=== PATIENT | female | born 1940 | race Caucasian/White ===

== ENCOUNTER 2019-10-26 21:59 | Inpatient (IN) | payer MEDICARE, OTHER ==
[2019-10-26] MEDS ORDERED: fentaNYL (PF) 50 MCG/ML 2 ML AMP IVP PRN (22:55)
[2019-10-26] MEDS ORDERED: fentaNYL (PF) 50 MCG/ML 2 ML AMP IVP ONE (22:57)
--- NOTE | 2019-10-26 23:00 | ED ---
Fall HPI - General Chief Complaint: Fall Stated Complaint: hip pain Time Seen by Provider: 10/26/19 22:00 Source: patient, EMS Mode of arrival: EMS - History of Present Illness Initial Comments: This is a 79-year-old female who states she fell. She should wheelchair she follows her left hip and complains of severe left hip pain she denies any other injuries any head neck or back pain she states she always has pain or lower extremities with that she does not believe there is anything new going on there. She was brought in by EMS given 25 g of fentanyl with some relief she still having a lot of pain however. No other complaints or modifying factors at this time she is reported with hit her head but she states she is frustrated he denies any head pain some reported nausea. Temperature 99.3 upon arrival. She does have a history of pulmonary fibrosis posterior rheumatoid arthritis COPD. MD Complaint: fall - Related Data Home Medications Medication Instructions Recorded Confirmed Cholecalciferol [Vitamin D3 (25 1,000 unit PO AC-SUPPER 10/12/14 07/04/15 Mcg = 1000 Iu)] Ipratropium-Albuterol Nebulize 3 ml INHALATION RT-Q8H PRN 10/12/14 07/04/15 [Duoneb 0.5 mg-3 mg/3 ml Soln] Montelukast [Singulair] 10 mg PO HS 10/12/14 07/04/15 Ferrous Sulfate [Feosol] 325 mg PO AC-SUPPER 01/23/15 07/04/15 Furosemide [Lasix] 10 mg PO QAM 06/07/15 07/04/15 Lisinopril [Zestril] 1.25 mg PO QAM 06/07/15 07/04/15 Atorvastatin [Lipitor] 40 mg PO AC-SUPPER 07/04/15 07/04/15 Clopidogrel [Plavix] 75 mg PO QAM 07/04/15 07/04/15 Spironolactone [Aldactone] 25 mg PO QAM 07/04/15 07/04/15 Previous Rx's Medication Instructions Recorded Nitroglycerin Sl Tabs [Nitrostat] 0.4 mg SUBLINGUAL Q5M PRN #0 tab 11/02/14 Pantoprazole [Protonix] 40 mg PO AC-BRKFST tablet. 01/04/16 ALPRAZolam [Xanax] 0.25 mg PO HS #30 tablet 07/10/15 Arformoterol Tartrate [Brovana] 15 mcg INHALATION RT-BID nebu 07/10/15 Artificial Tears-Hypromellose 1 drops BOTH EYES QID PRN #0 bottle 07/10/15 [Artificial Tear Drops] Aspirin EC [Ecotrin Low Dose] 81 mg PO DAILY #60 tablet.dr 07/10/15 HYDROcodone/APAP 5-325MG [[place] 1 tab PO Q4HR PRN #60 tab 07/10/15 5-325] Megestrol [Megace] 400 mg PO QAM cup 07/10/15 Metoprolol Tartrate [Lopressor] 12.5 mg PO BID tab 07/10/15 Morphine Sulfate [Ms Contin] 15 mg PO DAILY #30 tablet.er 07/10/15 Polyethylene Glycol 3350 [Miralax] 17 gm PO HS powd.pack 07/10/15 Sennosides-Docusate Sodium 2 each PO BID PRN tab 07/10/15 [Senokot-S] Benzonatate [Tessalon Perles] 200 mg PO TID #90 cap 07/15/15 Budesonide [Pulmicort] 1 mg INHALATION RT-BID nebu 07/15/15 Levalbuterol Nebulized [Xopenex 1.25 mg INHALATION RT-QID ml 07/15/15 Nebulized] Levofloxacin [Levaquin] 250 mg PO DAILY #5 tab 07/15/15 predniSONE 5 mg PO HS #0 07/15/15 predniSONE 10 mg PO DIRECTED #90 tab 07/15/15 Allergies Allergy/AdvReac Type Severity Reaction Status Date / Time codeine Allergy Severe Anaphylaxis Verified 10/26/19 22:13 Echinacea Allergy Severe Anaphylaxis Verified 10/26/19 22:13 Sulfa (Sulfonamide Allergy Severe Anaphylaxis Verified 10/26/19 22:13 Antibiotics) alcohol AdvReac Unknown Unknown Verified 10/26/19 22:13 nitroglycerin AdvReac Unknown Unknown Verified 10/26/19 22:13 [From Nitrostat] Review of Systems ROS Statement: Those systems with pertinent positive or pertinent negative responses have been documented in the HPI. ROS Other: All systems not noted in ROS Statement are negative. 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, chronic diverticulosis fe deficiency anemia , COPD, hyperlipidemia, rheumatoid arthritis, Last Myocardial Infarction Date:: 10/13/2014 History of Any Multi-Drug Resistant Organisms: None Reported Past Surgical History: Appendectomy, Bowel Resection, Cholecystectomy, Heart Catheterization, Heart Catheterization With Stent Additional Past Surgical History / Comment(s): bowel sx (adhesions), right foot, LEFT SHOULDER FX Past Anesthesia/Blood Transfusion Reactions: No Reported Reaction Date of Last Stent Placement:: 10/13/2014 Past Psychological History: Anxiety, Depression Smoking Status: Never smoker Past Alcohol Use History: None Reported Past Drug Use History: None Reported - Past Family History Father Family Medical History: Coronary Artery Disease (CAD) Additional Family Medical History / Comment(s): parkinsons, cabg x 4 vessels Mother Additional Family Medical History / Comment(s): at 54 from a coronary thrombosis General Exam - General Exam Comments Initial Comments: This is a well-developed well-nourished awake alert oriented 3 female who does demonstrate a [place] Coma Scale of 15 Limitations: physical limitation General appearance: alert, anxious, in distress Head exam: Present: atraumatic, normocephalic, normal inspection Eye exam: Present: normal appearance, PERRL, EOMI. Absent: scleral icterus, conjunctival injection, periorbital swelling ENT exam: Present: normal exam, mucous membranes moist Neck exam: Present: normal inspection. Absent: tenderness, meningismus, lymphadenopathy Respiratory exam: Present: normal lung sounds bilaterally. Absent: respiratory distress, wheezes, rales, rhonchi, stridor Cardiovascular Exam: Present: regular rate, normal rhythm, normal heart sounds. Absent: systolic murmur, diastolic murmur, rubs, gallop, clicks GI/Abdominal exam: Present: soft, normal bowel sounds. Absent: distended, tenderness, guarding, rebound, rigid Rectal exam: Present: deferred Extremities exam: Present: tenderness ([place] palpation over left hip no definite step-off or crepitation however. Some possible lateral rotation no definite shortening.), normal capillary refill. Absent: full ROM, pedal edema, joint swelling, calf tenderness Back exam: Present: normal inspection. Absent: tenderness, CVA tenderness (R), CVA tenderness (L), rash noted Neurological exam: Present: alert, oriented X3, CN II-XII intact Psychiatric exam: Present: normal affect, anxious Skin exam: Present: warm, dry, intact, normal color, other (Small bruise noted on the left thurston no evidence of any infectious process at this time). Absent: rash Course Vital Signs 10/26/19 10/26/19 22:07 23:09 Temperature 99.0 F Pulse Rate 72 78 Respiratory 18 18 Rate Blood Pressure 140/76 133/65 O2 Sat by Pulse 99 96 Oximetry Medical Decision Making - Medical Decision Making I did discuss the case with Colin murillo from Dr. Weiss's office. Patient be admitted with medical and pulmonary consultation. - Lab Data Result diagrams: 10/26/19 23:25 Lab Results 10/26/19 Range/Units 23:25 WBC 11.6 H (3.8-10.6) k/uL RBC 4.26 (3.80-5.40) m/uL Hgb 12.5 (11.4-16.0) gm/dL Hct 39.3 (34.0-46.0) % MCV 92.3 (80.0-100.0) fL MCH 29.3 (25.0-35.0) pg MCHC 31.7 (31.0-37.0) g/dL RDW 14.4 (11.5-15.5) % Plt Count 271 (150-450) k/uL Neutrophils % 85 % Lymphocytes % 7 % Monocytes % 5 % Eosinophils % 1 % Basophils % 0 % Neutrophils # 9.9 H (1.3-7.7) k/uL Lymphocytes # 0.8 L (1.0-4.8) k/uL Monocytes # 0.6 (0-1.0) k/uL Eosinophils # 0.2 (0-0.7) k/uL Basophils # 0.0 (0-0.2) k/uL Hypochromasia Slight - Radiology Data Radiology results: report reviewed (I did review the imaging and report evidence of a subcapital fracture on the left.), image reviewed Disposition Clinical Impression: Closed left hip fracture, Fall Disposition: ADMITTED IP TO THIS [facility] Condition: Fair Referrals: Micha Salas DO [Primary Care Provider] - 1-2 days
--- NOTE | 2019-10-26 23:31 | XR ---
EXAMINATION TYPE: XR Hip LT and AP Pelvis DATE OF EXAM: 10/26/2019 COMPARISON: NONE HISTORY: Hip pain. Fall. TECHNIQUE: 3 views FINDINGS: There is 3 cm impacted subcapital fracture left femur. There is no dislocation. The pelvic ring is intact. Sacroiliac joints are intact. IMPRESSION: Acute impacted subcapital fracture left femur.
[2019-10-26 23:35] LABS: Basophils % (A) 0 %; Eosinophils # (A) 0.2 k/uL (0-0.7); Eosinophils % (A) 1 %; HCT 39.3 % (34.0-46.0); HGB 12.5 gm/dL (11.4-16.0); Hypochromasia Slight; Lymphocytes # (A) 0.8 k/uL (1.0-4.8); Lymphocytes % (A) 7 %; MCH 29.3 pg (25.0-35.0); MCHC 31.7 g/dL (31.0-37.0); MCV 92.3 fL (80.0-100.0); Monocytes # (A) 0.6 k/uL (0-1.0); Monocytes % (A) 5 %; Neutrophils # (A) 9.9 k/uL (1.3-7.7); Neutrophils % (A) 85 %; Platelet Count 271 k/uL (150-450); RBC 4.26 m/uL (3.80-5.40); RDW 14.4 % (11.5-15.5); WBC 11.6 k/uL (3.8-10.6)
[2019-10-26] MEDS ORDERED: SODIUM CHLORIDE 0.9% 1,000 ML IV SCH (23:45)
[2019-10-26] MEDS ORDERED: HYDROmorphone 0.5 MG/0.5 ML SYRINGE IVP STA (23:48)
[2019-10-26] MEDS ORDERED: LORazepam 2 MG/ML INJ IV PRN (23:49)
[2019-10-26] MEDS ORDERED: ACETAMINOPHEN TAB 325 MG TAB PO PRN (23:49)
[2019-10-26] MEDS ORDERED: ONDANSETRON 4 MG/2 ML VIAL IVP PRN (23:49)
[2019-10-26] MEDS ORDERED: HYDROmorphone 0.5 MG/0.5 ML SYRINGE IVP PRN (23:49)
[2019-10-26] MEDS ORDERED: NALOXONE 0.4 MG/ML 1 ML VIAL IV PRN (23:49)
--- NOTE | 2019-10-26 23:52 | XR ---
EXAMINATION TYPE: XR chest 1V portable DATE OF EXAM: 10/26/2019 COMPARISON: 07/05/2018 HISTORY: Chest pain. Fall. TECHNIQUE: FINDINGS: Heart is normal. Lungs are clear of consolidation. There is no heart failure. There is mild linear density left lung base. There is no pleural effusion. Thoracic aorta is atheromatous. IMPRESSION: Minimal scarring or subsegmental atelectasis left lung base. Normal heart.
[2019-10-26 23:53] LABS: Albumin 3.6 g/dL (3.5-5.0); Calcium 9.4 mg/dL (8.4-10.2); Total Bilirubin 0.5 mg/dL (0.2-1.3); Total Protein 6.4 g/dL (6.3-8.2)
[2019-10-26] MEDS ORDERED: NITROGLYCERIN SL TABS 0.4 MG TAB SUBLINGUAL PRN (23:53)
[2019-10-26 23:55] LABS: INR 0.9 (<1.2); Prothrombin Time 9.4 sec (9.0-12.0)
[2019-10-27 00:02] LABS: Magnesium 1.8 mg/dL (1.6-2.3)
[2019-10-27 00:31] LABS: Partial Thromboplastin Time 21.2 sec (22.0-30.0)
[2019-10-27 01:07] LABS: Appearance,Urine Clear (Clear); Bilirubin,Urine Negative (Negative); Blood,Urine Negative (Negative); Color,Urine Yellow; Glucose,Urine (UA) Negative (Negative); Hyaline Casts,Urine 1 /lpf (0-2); Ketones,Urine Negative (Negative); Leukocyte Esterase,Urine Small (Negative); Mucus,Urine Rare /hpf; Nitrite,Urine Negative (Negative); PH, Urine 5.5 (5.0-8.0); Protein,Urine Negative (Negative); RBC,Urine 3 /hpf (0-5); Specific Gravity,Urine 1.014 (1.001-1.035); Urobilinogen,Urine <2.0 mg/dL (<2.0); WBC,Urine <1 /hpf (0-5)
[2019-10-27] MEDS ORDERED: ONDANSETRON 4 MG/2 ML VIAL IVP PRN (05:43)
[2019-10-27] MEDS: HYDROmorphone 1 MG/ML 1 ML SYRINGE IVP PRN ×4 (05:45→22:48)
[2019-10-27] MEDS: LORazepam 2 MG/ML INJ IV PRN ×2 (07:43→21:17)
[2019-10-27] MEDS ORDERED: ALBUTEROL NEBULIZED 2.5 MG/3 ML INHALATION SCH (08:00)
[2019-10-27] MEDS: BUDESONIDE 1 MG/2 ML NEBU INHALATION SCH ×2 (08:24→19:44)
[2019-10-27] MEDS: FORMOTEROL FUMARATE 20 MCG/2 ML NEBU INHALATION SCH ×2 (08:24→19:44)
[2019-10-27] MEDS: ALBUTEROL NEBULIZED 2.5 MG/3 ML INHALATION SCH ×4 (08:26→19:44)
[2019-10-27] MEDS ORDERED: ARTIFICIAL TEARS-HYPROMELLOSE DROPS 15 ML BTL BOTH EYES PRN (09:00)
[2019-10-27] MEDS ORDERED: PANTOPRAZOLE 40 MG/10 ML VIAL IV SCH (09:00)
[2019-10-27] MEDS: HEPARIN SODIUM,PORCINE 5,000 UNIT/ML 1 ML VIAL SQ SCH ×2 (09:32→21:16)
[2019-10-27] MEDS: FUROSEMIDE 20 MG TAB PO SCH (09:32)
[2019-10-27] MEDS: LISINOPRIL 2.5 MG TAB PO SCH (09:32)
[2019-10-27] MEDS: METOPROLOL TARTRATE 12.5 MG TAB PO SCH ×2 (09:33→21:15)
[2019-10-27] MEDS: HYDROCORTISONE SUCCINATE 100 MG/2 ML VIAL IV SCH ×3 (10:03→22:48)
[2019-10-27] MEDS ORDERED: SENNOSIDES-DOCUSATE SODIUM 1 EACH TAB PO PRN (10:23)
[2019-10-27] MEDS: PANTOPRAZOLE 40 MG TABLET PO SCH (11:14)
[2019-10-27] MEDS: SPIRONOLACTONE 25 MG TAB PO SCH (11:14)
[2019-10-27] MEDS: MORPHINE SULFATE ER 15 MG TABLET PO SCH (11:14)
--- NOTE | 2019-10-27 11:36 | P.HPOR ---
History of Present Illness H&P Date: 10/27/19 Chief Complaint: Left hip pain The patient's a 79[place]year-old [facility] resident who presents with severe left hip pain after a suspected fall yesterday. She is a poor historian however it is unclear she ambulates independently. 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, chronic diverticulosis fe deficiency anemia , COPD, hyperlipidemia, rheumatoid arthritis, Last Myocardial Infarction Date:: 10/13/2014 History of Any Multi-Drug Resistant Organisms: None Reported Past Surgical History: Appendectomy, Bowel Resection, Cholecystectomy, Heart Catheterization, Heart Catheterization With Stent Additional Past Surgical History / Comment(s): bowel sx (adhesions), right foot, LEFT SHOULDER FX Past Anesthesia/Blood Transfusion Reactions: No Reported Reaction Date of Last Stent Placement:: 10/13/2014 Past Psychological History: Anxiety, Depression Additional Psychological History / Comment(s): pt. states she gets depressed at times but would never harm herself Smoking Status: Never smoker Past Alcohol Use History: None Reported Past Drug Use History: None Reported - Past Family History Father Family Medical History: Coronary Artery Disease (CAD) Additional Family Medical History / Comment(s): parkinsons, cabg x 4 vessels Mother Additional Family Medical History / Comment(s): at 54 from a coronary thrombosis Medications and Allergies Home Medications Medication Instructions Recorded Confirmed Type Cholecalciferol [Vitamin D3 (25 1,000 unit PO AC-SUPPER 10/12/14 07/04/15 History Mcg = 1000 Iu)] Ipratropium-Albuterol Nebulize 3 ml INHALATION RT-Q8H PRN 10/12/14 07/04/15 History [Duoneb 0.5 mg-3 mg/3 ml Soln] Montelukast [Singulair] 10 mg PO HS 10/12/14 07/04/15 History Nitroglycerin Sl Tabs [Nitrostat] 0.4 mg SUBLINGUAL Q5M PRN #0 tab 11/02/14 07/04/15 Rx Ferrous Sulfate [Feosol] 325 mg PO AC-SUPPER 01/23/15 07/04/15 History Furosemide [Lasix] 10 mg PO QAM 06/07/15 07/04/15 History Lisinopril [Zestril] 1.25 mg PO QAM 06/07/15 07/04/15 History Pantoprazole [Protonix] 40 mg PO AC-BRKFST tablet. 06/16/15 07/04/15 Rx Atorvastatin [Lipitor] 40 mg PO AC-SUPPER 07/04/15 07/04/15 History Clopidogrel [Plavix] 75 mg PO QAM 07/04/15 07/04/15 History Spironolactone [Aldactone] 25 mg PO QAM 07/04/15 07/04/15 History ALPRAZolam [Xanax] 0.25 mg PO HS #30 tablet 07/10/15 Rx Arformoterol Tartrate [Brovana] 15 mcg INHALATION RT-BID nebu 07/10/15 Rx Artificial Tears-Hypromellose 1 drops BOTH EYES QID PRN #0 bottle 07/10/15 Rx [Artificial Tear Drops] Aspirin EC [Ecotrin Low Dose] 81 mg PO DAILY #60 tablet. 07/10/15 Rx HYDROcodone/APAP 5-325MG [[place] 1 tab PO Q4HR PRN #60 tab 07/10/15 Rx 5-325] Megestrol [Megace] 400 mg PO QAM cup 07/10/15 Rx Metoprolol Tartrate [Lopressor] 12.5 mg PO BID tab 07/10/15 Rx Morphine Sulfate [Ms Contin] 15 mg PO DAILY #30 tablet.er 07/10/15 Rx Polyethylene Glycol 3350 [Miralax] 17 gm PO HS powd.pack 07/10/15 Rx Sennosides-Docusate Sodium 2 each PO BID PRN tab 07/10/15 Rx [Senokot-S] Benzonatate [Tessalon Perles] 200 mg PO TID #90 cap 07/15/15 Rx Budesonide [Pulmicort] 1 mg INHALATION RT-BID nebu 07/15/15 Rx Levalbuterol Nebulized [Xopenex 1.25 mg INHALATION RT-QID ml 07/15/15 Rx Nebulized] Levofloxacin [Levaquin] 250 mg PO DAILY #5 tab 07/15/15 Rx predniSONE 5 mg PO HS #0 07/15/15 07/04/15 Rx predniSONE 10 mg PO DIRECTED #90 tab 07/15/15 Rx Allergies Allergy/AdvReac Type Severity Reaction Status Date / Time codeine Allergy Severe Anaphylaxis Verified 10/26/19 22:13 Echinacea Allergy Severe Anaphylaxis Verified 10/26/19 22:13 Sulfa (Sulfonamide Allergy Severe Anaphylaxis Verified 10/26/19 22:13 Antibiotics) alcohol AdvReac Unknown Unknown Verified 10/26/19 22:13 nitroglycerin AdvReac Unknown Unknown Verified 10/26/19 22:13 [From Nitrostat] Physical Examination - Fracture left hip Location of fracture: Left hip Appearance: other (Shortening and external rotation left lower extremity) Compartments: soft Distal extremity neurovascularly intact: Yes Distal joint involvement: No Results Nontender bilateral upper extremities, skin tear posterior lateral left proximal forearm Nontender cervicothoracic lumbar spine with no step off Pelvis stable to external rotation stress Shortening and external rotation left lower extremity with extreme pain with log roll left hip No pain with log roll right hip Nontender both knees Anterior medial distal left thurston tenderness with ecchymosis and swelling Distal neurovascular exam intact in the lower extremities - Labs Labs: Abnormal Lab Results - Last 24 Hours (Table) 10/26/19 10/26/19 10/26/19 Range/Units 23:25 23:25 23:25 WBC 11.6 H (3.8-10.6) k/uL Neutrophils # 9.9 H (1.3-7.7) k/uL Lymphocytes # 0.8 L (1.0-4.8) k/uL APTT 21.2 L (22.0-30.0) sec Sodium 136 L (137-145) mmol/L BUN 33 H (7-17) mg/dL Creatinine 1.26 H (0.52-1.04) mg/dL Glucose 170 H (74-99) mg/dL Ur Leukocyte Esterase (Negative) Urine Mucus (None) /hpf 10/27/19 Range/Units 00:25 WBC (3.8-10.6) k/uL Neutrophils # (1.3-7.7) k/uL Lymphocytes # (1.0-4.8) k/uL APTT (22.0-30.0) sec Sodium (137-145) mmol/L BUN (7-17) mg/dL Creatinine (0.52-1.04) mg/dL Glucose (74-99) mg/dL Ur Leukocyte Esterase Small H (Negative) Urine Mucus Rare H (None) /hpf H & H 10/26/19 Range/Units 23:25 Hgb 12.5 (11.4-16.0) gm/dL Hct 39.3 (34.0-46.0) % Coagulation 10/26/19 Range/Units 23:25 INR 0.9 (<1.2) Result Diagrams: 10/26/19 23:25 10/26/19 23:25 - Diagnostic results Hip x-ray: image reviewed (Displaced left subcapital femoral neck fracture) Assessment and Plan Assessment: Displaced left subcapital femoral neck fracture History of coronary artery disease on Plavix COPD Dementia Multiple medical comorbidities Plan: At this point I recommend proceeding with surgical intervention. We will plan to proceed with left hip hemiarthroplasty once medically stable. We will have the power of set up inspector called for consent. We will likely need to proceed with general anesthetic as she's been on Plavix. I will obtain x-rays of the left tibia/fibula as she does have some soft tissue trauma. Time with Patient: Greater than 30
--- NOTE | 2019-10-27 12:09 | P.CNPUL ---
History of Present Illness Consult date: 10/27/19 Reason for consult: COPD History of present illness: 79-year-old female patient with advanced COPD with chronic hypoxic respiratory failure and based on FEV1 of 41% of predicted and chronic steroid use at a dose of 5 mg of prednisone daily basis. She also has history of rheumatoid arthritis maintained on 5 mg of prednisone, coronary artery disease, COPD and hypertension. Previous cardiac catheterization and stenting of the RCA and LAD has been done on this patient. The patient came into the hospital after she had a fall at the halfway. She fell out of her wheelchair and she sustained a fracture to her left hip. She came into the emergency department having difficulties with pain and mobility. The x-ray of the left hip showed an acute subcapital fracture of the left femur. Coagulation profile is within normal. Renal function shows a BUN of 33 with a creatinine of 1.26. This patient has normal liver function tests and the rest of the blood work is within normal. She is a permanent halfway resident. She is residing at [facility]. The patient has limited exercise capacity she gets short of breath with minimal marge unt of activity due to her advanced COPD. She has been on Advair as maintenance and she does albuterol ipratropium nebulized treatment on an as needed basis. She has difficulty with mobility and gait. No joint deformities other than her chronic deformities related to rheumatoid arthritis. She has not had any previous falls. The patient has no cough and congestion has been much subsided. No swelling lower extremities. No fever or chills. No thrush. She is edentulous. No aspiration. She is unable to perform activities of daily today life independently and she needs help. Her last pneumonia shot was around 3 years ago. Good appetite. No altered mentation. Review of Systems Constitutional Constitutional: (generalized weakness) Eyes Eyes: vision change (cataracts in both eyes) ENMT Ears: no difficulty hearing, no ear pain Nose: no frequent nosebleeds, no nose problems, no sinus problems Mouth/Throat: no sore throat, no bleeding gums, no snoring, no dry mouth, no mouth ulcers, no oral abnormalities, no teeth problems ( is edentulous.) Cardiovascular Cardiovascular: shortness of breath when walking (Patient has limited exercise capacity and she cannot move alone without any assistance. She moves around with the help of a wheelchair, cannot use a walker because of her severe arthritis.) Respiratory Respiratory: no cough, no wheezing, no coughing up blood, no sleep apnea, shortness of breath Gastrointestinal Gastrointestinal: no abdominal pain, no nausea, no vomiting, no constipation, normal appetite, no diarrhea, not vomiting blood, no dyspepsia, no GERD Genitourinary Genitourinary: no incontinence, no difficulty urinating, no hematuria, no increased frequency Musculoskeletal Musculoskeletal: arthralgias/joint pain, back pain (Right knee pain) and the patient is a left hip pain as the patient a fall and fractured left hip. Integumentary Skin: no abnormal mole, no jaundice, no rashes, no laceration Neurologic Neurologic: no loss of consciousness, no weakness, no numbness, no seizures, no dizziness, no migraines, no headaches, no tremor Psychiatric Psych: no depression, no sleep disturbances, feeling safe in a relationship, no alcohol abuse, no anxiety, no hallucinations, no suicidal thoughts Endocrine Endocrine: no fatigue Hematologic/Lymphatic Hematologic/Lymphatic no swollen glands, no bruising, no excessive bleeding Allergic/Immunologic Allergy/Immunologic: no runny nose, no sinus pressure, no itching, no hives, no frequent sneezing Screening Constitutional: Reports weakness 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, chronic diverticulosis fe deficiency anemia , COPD, hyperlipidemia, rheumatoid arthritis, Last Myocardial Infarction Date:: 10/13/2014 History of Any Multi-Drug Resistant Organisms: None Reported Past Surgical History: Appendectomy, Bowel Resection, Cholecystectomy, Heart Catheterization, Heart Catheterization With Stent Additional Past Surgical History / Comment(s): bowel sx (adhesions), right foot, LEFT SHOULDER FX Past Anesthesia/Blood Transfusion Reactions: No Reported Reaction Date of Last Stent Placement:: 10/13/2014 Past Psychological History: Anxiety, Depression Additional Psychological History / Comment(s): pt. states she gets depressed at times but would never harm herself Smoking Status: Never smoker Past Alcohol Use History: None Reported Past Drug Use History: None Reported - Past Family History Father Family Medical History: Coronary Artery Disease (CAD) Additional Family Medical History / Comment(s): parkinsons, cabg x 4 vessels Mother Additional Family Medical History / Comment(s): at 54 from a coronary thrombosis Medications and Allergies Home Medications Medication Instructions Recorded Confirmed Type Cholecalciferol [Vitamin D3 (25 1,000 unit PO AC-SUPPER 10/12/14 07/04/15 History Mcg = 1000 Iu)] Ipratropium-Albuterol Nebulize 3 ml INHALATION RT-Q8H PRN 10/12/14 07/04/15 History [Duoneb 0.5 mg-3 mg/3 ml Soln] Montelukast [Singulair] 10 mg PO HS 10/12/14 07/04/15 History Nitroglycerin Sl Tabs [Nitrostat] 0.4 mg SUBLINGUAL Q5M PRN #0 tab 11/02/14 07/04/15 Rx Ferrous Sulfate [Feosol] 325 mg PO AC-SUPPER 01/23/15 07/04/15 History Furosemide [Lasix] 10 mg PO QAM 06/07/15 07/04/15 History Lisinopril [Zestril] 1.25 mg PO QAM 06/07/15 07/04/15 History Pantoprazole [Protonix] 40 mg PO AC-BRKFST tablet. 06/16/15 07/04/15 Rx Atorvastatin [Lipitor] 40 mg PO AC-SUPPER 07/04/15 07/04/15 History Clopidogrel [Plavix] 75 mg PO QAM 07/04/15 07/04/15 History Spironolactone [Aldactone] 25 mg PO QAM 07/04/15 07/04/15 History ALPRAZolam [Xanax] 0.25 mg PO HS #30 tablet 07/10/15 Rx Arformoterol Tartrate [Brovana] 15 mcg INHALATION RT-BID nebu 07/10/15 Rx Artificial Tears-Hypromellose 1 drops BOTH EYES QID PRN #0 bottle 07/10/15 Rx [Artificial Tear Drops] Aspirin EC [Ecotrin Low Dose] 81 mg PO DAILY #60 tablet. 07/10/15 Rx HYDROcodone/APAP 5-325MG [[place] 1 tab PO Q4HR PRN #60 tab 07/10/15 Rx 5-325] Megestrol [Megace] 400 mg PO QAM cup 07/10/15 Rx Metoprolol Tartrate [Lopressor] 12.5 mg PO BID tab 07/10/15 Rx Morphine Sulfate [Ms Contin] 15 mg PO DAILY #30 tablet.er 07/10/15 Rx Polyethylene Glycol 3350 [Miralax] 17 gm PO HS powd.pack 07/10/15 Rx Sennosides-Docusate Sodium 2 each PO BID PRN tab 07/10/15 Rx [Senokot-S] Benzonatate [Tessalon Perles] 200 mg PO TID #90 cap 07/15/15 Rx Budesonide [Pulmicort] 1 mg INHALATION RT-BID nebu 07/15/15 Rx Levalbuterol Nebulized [Xopenex 1.25 mg INHALATION RT-QID ml 07/15/15 Rx Nebulized] Levofloxacin [Levaquin] 250 mg PO DAILY #5 tab 07/15/15 Rx predniSONE 5 mg PO HS #0 07/15/15 07/04/15 Rx predniSONE 10 mg PO DIRECTED #90 tab 07/15/15 Rx Allergies Allergy/AdvReac Type Severity Reaction Status Date / Time codeine Allergy Severe Anaphylaxis Verified 10/26/19 22:13 Echinacea Allergy Severe Anaphylaxis Verified 10/26/19 22:13 Sulfa (Sulfonamide Allergy Severe Anaphylaxis Verified 10/26/19 22:13 Antibiotics) alcohol AdvReac Unknown Unknown Verified 10/26/19 22:13 nitroglycerin AdvReac Unknown Unknown Verified 10/26/19 22:13 [From Nitrostat] Physical Exam Vitals: Vital Signs Temp Pulse Pulse Resp BP BP Pulse Ox 10/27/19 11:25 99.5 F 83 20 151/66 98 10/27/19 08:50 110 H 10/27/19 08:43 108 H 10/27/19 08:42 108 H 10/27/19 08:29 112 H 10/27/19 07:45 99.5 F 104 H 20 146/102 92 L 10/27/19 03:16 98.0 F 97 19 168/92 92 L 10/27/19 01:33 97.9 F 85 20 157/100 95 10/27/19 00:29 98.9 F 77 16 136/94 95 10/26/19 23:09 78 18 133/65 96 10/26/19 22:07 99.0 F 72 18 140/76 99 Intake and Output 10/26/19 10/27/19 10/27/19 22:59 06:59 14:59 Output Total 750 Balance -750 Output: Urine 750 Uretheral (Ibarra) 400 Other: Voiding Method Indwelling Catheter Indwelling Catheter # Voids 0 Weight 82.1 kg 83 kg General Appearance no diaphoresis, no respiratory distress, speech not interrupted by breaths, no dyspnea, no pallor, not cachectic, well nourished, appears well HEENT no pursed lip breathing, no jugular venous distention, no mucous membrane cyanosis, no perioral cyanosis, mallampati classification: class 1, Mallampati Classification: Class 3 (edentulous) Chest no barrel chest, no retractions, no sternocleidomastoid muscle contractions, no supraclavicular retractions, no intercostal retractions, no prolonged expiratory wheezing, no decreased air movement, no rhonchi, no hyperinflation, decreased air movement (crackles in the lung bases more so on the left and thoracolumbar kyphoscoliosis.) Heart no right ventricular heave, no distant heart sounds, no s3 gallop GI bowel sounds: hyperactive (borborygmi), bowel sounds: diminished or absent Extremities no cyanosis, no clubbing, no edema, the patient has left lower extremity is externally rotated and she is neurovascularly intact. Neurologic no decreased mental status, no somnolence, no confusion Assisstive Devices: wheelchair manual Skin General Appearance normal, (normal) normal except as noted Results - Laboratory Findings CBC and BMP: 10/26/19 23:25 10/26/19 23:25 PT/INR, D-dimer PT 9.4 sec (9.0-12.0) 10/26/19 23:25 INR 0.9 (<1.2) 10/26/19 23:25 Abnormal lab findings: Abnormal Labs 10/26/19 10/26/19 10/26/19 23:25 23:25 23:25 WBC 11.6 H Neutrophils # 9.9 H Lymphocytes # 0.8 L APTT 21.2 L Sodium 136 L BUN 33 H Creatinine 1.26 H Glucose 170 H Ur Leukocyte Esterase Urine Mucus 10/27/19 00:25 WBC Neutrophils # Lymphocytes # APTT Sodium BUN Creatinine Glucose Ur Leukocyte Esterase Small H Urine Mucus Rare H - Diagnostic Findings Chest x-ray: image reviewed Assessment and Plan Plan: 1 left hip subcapital fracture of the femur, fall related 2 left hip pain secondary to above 3 severe chronic obstructive pulmonary disease, she has severe COPD. Her FEV1 is noted of 41% of predicted.tinea the Advair. Continue the albuterol nebulized treatments every times a day. She is on prednisone 5 mg by mouth on a daily basis. Her lungs are diminished yet no signs of any pneumonia or fluid at this point in time.the patient is been stable for now and there are no active respiratory issues. She was still moving around with the help of a chair. Nevertheless, despite her limitations, she is doing well and she had an acceptable quality of life till at this point in time when she fell 4 coronary arteriosclerosis, inactive in stable and previous stenting of RCA and LAD 5 rheumatoid arthritis, on low-dose prednisone at 5 mg. No active joint swelling. 6 osteoarthritis Difficulty and mobility and the patient is moving around with the help of a wheelchair. patient is still on a combination of morphine and [place] for pain control. 7 hyperlipidemia, on Lipitor for hyperlipidemia. 8 anxiety disorder 9 scoliosis of thoracic spine 10 dementia Plan Provide adequate rate control Incentive spirometer This dose hydrocortisone. The oral prednisone for now Proceed with surgery once ready by orthopedic surgery for left hip hemiarthroplasty CODE STATUS needs to be established prior to that
[2019-10-27 12:22] LABS: Glucose,Whole Blood 141 mg/dL (75-99)
--- NOTE | 2019-10-27 13:17 | XR ---
EXAMINATION TYPE: XR tibia fibula LT , 4 VIEWS DATE OF EXAM ORDERED: 10/27/2019 HISTORY: trauma. COMPARISON: None. FINDINGS: The bones are quite osteopenic. There is extensive vascular calcification present. There is evidence of osteoarthritis within the lef t knee. There are plantar and Achilles calcaneal spurs. No fracture, dislocation or other acute osseo us lesion is seen. IMPRESSION: 1. NO ACUTE OSSEOUS LESION. 2. OSTEOARTHRITIS. 3. CALCANEAL SPURS.
[2019-10-27] MEDS: HYDROcodone/APAP 5-325MG 1 EACH TAB PO PRN ×3 (13:35→21:16)
[2019-10-27] MEDS: MEGESTROL 400 MG/10 ML CUP PO SCH (13:47)
[2019-10-27 17:18] LABS: Glucose,Whole Blood 170 mg/dL (75-99)
--- NOTE | 2019-10-27 17:23 | P.CONS ---
History of Present Illness - Reason for Consult Consult date: 10/27/19 Medical management Requesting physician: Hao Bird - Chief Complaint Left hip pain - History of Present Illness Consultation: This is a 79-year-old patient who follows a Dr. Salas at the [facility]. Chronic stable medical conditions include coronary artery. The stent, COPD, GERD, hypertension, rheumatoid arthritis, chronic hydronephrosis of the left kidney, chronic diverticulosis hyperlipidemia rheumatoid arthritis. Normally uses a wheelchair. Patient fell on the left hip fracturing fracturing the same. Significant pain of the fracture site. No change in the breathing pattern. This was a mechanical fall. No dizziness no lightheadedness. Does not complaint of any chest pain. Patient about the most detailed historian. No fever no chills. Appetite is fair. Review of systems: GEN.: Tired EYES: None HEENT: None NECK: None RESPIRATORY: None CARDIOVASCULAR: None GASTROINTESTINAL: None GENITOURINARY: None MUSCULOSKELETAL: Pain especially in the left hip LYMPHATICS: None HEMATOLOGICAL: None PSYCHIATRY: None NEUROLOGICAL: To baseline uses a wheelchair Past medical history to include: Coronary artery disease with stent, COPD, GERD, hypertension, rheumatoid arthritis, chronic hydronephrotic left kidney, colonic diverticulosis, hyperlipidemia, rheumatoid arthritis, depression Social history: Does not smoke or drink cold. Resident of [facility]. Physical examination: VITAL SIGNS: 99, 72, 18, 140 was on Lasix, 99% on 2 L GENERAL: BMI 31.4, laying in bed uncomfortable. EYES: Pupils equal. Conjunctiva normal. HEENT: External appearance of nose and ears normal, oral cavity grossly normal. NECK: JVD not raised; masses not palpable. HEART: First and second heart sounds are normal; no edema. LUNGS: Respiratory rate normal; clear to auscultation. ABDOMEN: Soft, nontender, liver spleen not palpable, no masses palpable. PSYCH: Tired, cannot be assessed answers occasional questionsl. MUSCULOSKELETAL: Limited range of motion left hip. Evidence of OA in the joints NEUROLOGICAL: Cranial nerves grossly intact; no facial asymmetry, power and sensation grossly intact. LYMPHATICS: No lymph nodes palpable in the axilla and neck INVESTIGATIONS, reviewed in the clinical context: White count 11.6 hemoglobin 12.5 platelets 271 potassium 5 bun 33 creatinine 1.26 Patient's creatinine in June of this year was 1.35 UA positive for leukoesterase, small COVID-19 PCR-not detected Left hip fracture showing acute impacted subcapital fracture of the left femur EKG tracing personally reviewed by me shows normal sinus rhythm Chest x-ray film personally reviewed by me shows-lung castillo to be clear Assessment: -Acute left femur impacted subcapital fracture secondary to mechanical fall -Coronary artery disease with stent -Obesity BMI 31.4 -COPD -GERD -Essential hypertension -Rheumatoid arthritis -Chronically hydronephrotic left kidney -Colonic diverticulosis -Hyperlipidemia -Chronic kidney disease stage III Plan: Cardiovascular risk assessment: Patient has multiple comorbid morbidities including coronary artery with stent. Patient has no active symptoms. Has a limited access tolerate. White cell per surgery is low risk. Patient risk classification is about moderate risk for surgery with medical contraindications. This was discussed with the patient. Home medications resumed. Lovenox for DVT prophylaxis.: Antiplatelet agents to be held off for now. Thank you Dr. 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, chronic diverticulosis fe deficiency anemia , COPD, hyperlipidemia, rheumatoid arthritis, Last Myocardial Infarction Date:: 10/13/2014 History of Any Multi-Drug Resistant Organisms: None Reported Past Surgical History: Appendectomy, Bowel Resection, Cholecystectomy, Heart Catheterization, Heart Catheterization With Stent Additional Past Surgical History / Comment(s): bowel sx (adhesions), right foot, LEFT SHOULDER FX Past Anesthesia/Blood Transfusion Reactions: No Reported Reaction Date of Last Stent Placement:: 10/13/2014 Past Psychological History: Anxiety, Depression Additional Psychological History / Comment(s): pt. states she gets depressed at times but would never harm herself Smoking Status: Never smoker Past Alcohol Use History: None Reported Past Drug Use History: None Reported - Past Family History Father Family Medical History: Coronary Artery Disease (CAD) Additional Family Medical History / Comment(s): parkinsons, cabg x 4 vessels Mother Additional Family Medical History / Comment(s): at 54 from a coronary thrombosis Medications and Allergies Home Medications Medication Instructions Recorded Confirmed Type Cholecalciferol [Vitamin D3 (25 4,000 unit PO DAILY@1700 10/12/14 10/27/19 History Mcg = 1000 Iu)] Montelukast [Singulair] 10 mg PO HS@2100 10/12/14 10/27/19 History Nitroglycerin Sl Tabs [Nitrostat] 0.4 mg SUBLINGUAL Q5M PRN #0 tab 11/02/14 10/27/19 Rx Furosemide [Lasix] 20 mg PO Q48H 06/07/15 10/27/19 History Spironolactone [Aldactone] 12.5 mg PO Q48H 07/04/15 10/27/19 History ALPRAZolam [Xanax] 0.25 mg PO HS #30 tablet 07/10/15 10/27/19 Rx Artificial Tears-Hypromellose 1 drops BOTH EYES QID PRN #0 bottle 07/10/15 10/27/19 Rx [Artificial Tear Drops] Metoprolol Tartrate [Lopressor] 12.5 mg PO BID tab 07/10/15 10/27/19 Rx Morphine Sulfate [Ms Contin] 15 mg PO DAILY #30 tablet.er 07/10/15 10/27/19 Rx Acetaminophen [Tylenol] 325 - 650 mg PO Q4H PRN 10/27/19 10/27/19 History Albuterol Nebulized [Ventolin 2.5 mg INHALATION RT-Q4H PRN 10/27/19 10/27/19 History Nebulized] Aspirin EC [Ecotrin Low Dose] 81 mg PO DAILY@0800 10/27/19 10/27/19 History Atorvastatin [Lipitor] 10 mg PO HS@2100 10/27/19 10/27/19 History Bisacodyl [Dulcolax] 10 mg RECTAL DAILY@0600 PRN 10/27/19 10/27/19 History Famotidine [Pepcid] 20 mg PO DAILY@0800 10/27/19 10/27/19 History Fluticasone/Salmeterol [Advair 1 puff INHALATION BID@0800,1700 10/27/19 10/27/19 History 500-50 Diskus] HYDROcodone/APAP 5-325MG [[place] 1 tab PO Q6H PRN 10/27/19 10/27/19 History 5-325] HYDROcodone/APAP 5-325MG [[place] 1 tab PO Q8HR 10/27/19 10/27/19 History 5-325] Levalbuterol Nebulized [Xopenex 1.25 mg INHALATION RT-DAILY PRN 10/27/19 10/27/19 History Nebulized] Levalbuterol Nebulized [Xopenex 1.25 mg INHALATION RT-TID 10/27/19 10/27/19 History Nebulized] Loperamide [Imodium] 2 mg PO DAILY PRN 10/27/19 10/27/19 History Mag Hydrox/Al Hydrox/Simeth 15 ml PO Q6H PRN 10/27/19 10/27/19 History [Maalox] Magnesium Hydroxide [Milk of 2,400 mg PO DAILY PRN 10/27/19 10/27/19 History Magnesia] Melatonin 1 mg PO HS@209910/27/19 10/27/19 History Menthol [Biofreeze] 1 applic TOPICAL Q8H PRN 10/27/19 10/27/19 History Na Phos,M-B/Na Phos,Di-Ba [Fleet 133 ml RECTAL DAILY PRN 10/27/19 10/27/19 His tory Adult] Omeprazole 20 mg PO DAILY@0600 10/27/19 10/27/19 History Ondansetron [Zofran] 4 mg PO Q8HR PRN 10/27/19 10/27/19 History Polyethylene Glycol 3350 [Miralax] 17 gm PO HS@209910/27/19 10/27/19 History Zofran Injection 4 mg IV Q8H PRN 10/27/19 10/27/19 History guaiFENesin [Mucinex] 1,200 mg PO BID@0800,209910/27/19 10/27/19 History predniSONE 5 mg PO HS@209910/27/19 10/27/19 History traZODone HCL [Desyrel] 125 mg PO HS@209910/27/19 10/27/19 History Allergies Allergy/AdvReac Type Severity Reaction Status Date / Time codeine Allergy Severe Anaphylaxis Verified 10/27/19 12:52 Echinacea Allergy Severe Anaphylaxis Verified 10/27/19 12:52 Sulfa (Sulfonamide Allergy Severe Anaphylaxis Verified 10/27/19 12:52 Antibiotics) alcohol AdvReac Unknown Unknown Verified 10/27/19 12:52 nitroglycerin AdvReac Unknown Unknown Verified 10/27/19 12:52 [From Nitrostat] Physical Exam Vitals: Vital Signs Temp Pulse Pulse Resp BP BP Pulse Ox 10/27/19 11:25 99.5 F 83 20 151/66 98 10/27/19 08:50 110 H 10/27/19 08:43 108 H 10/27/19 08:42 108 H 10/27/19 08:29 112 H 10/27/19 07:45 99.5 F 104 H 20 146/102 92 L 10/27/19 03:16 98.0 F 97 19 168/92 92 L 10/27/19 01:33 97.9 F 85 20 157/100 95 10/27/19 00:29 98.9 F 77 16 136/94 95 10/26/19 23:09 78 18 133/65 96 10/26/19 22:07 99.0 F 72 18 140/76 99 Intake and Output 10/26/19 10/27/19 10/27/19 22:59 06:59 14:59 Output Total 750 Balance -750 Output: Urine 750 Uretheral (Ibarra) 400 Other: Voiding Method Indwelling Catheter Indwelling Catheter # Voids 0 Weight 82.1 kg 83 kg Results CBC & Chem 7: 10/26/19 23:25 10/26/19 23:25 Labs: Abnormal Lab Results - Last 24 Hours (Table) 10/26/19 10/26/19 10/26/19 Range/Units 23:25 23:25 23:25 WBC 11.6 H (3.8-10.6) k/uL Neutrophils # 9.9 H (1.3-7.7) k/uL Lymphocytes # 0.8 L (1.0-4.8) k/uL APTT 21.2 L (22.0-30.0) sec Sodium 136 L (137-145) mmol/L BUN 33 H (7-17) mg/dL Creatinine 1.26 H (0.52-1.04) mg/dL Glucose 170 H (74-99) mg/dL Ur Leukocyte Esterase (Negative) Urine Mucus (None) /hpf 10/27/19 Range/Units 00:25 WBC (3.8-10.6) k/uL Neutrophils # (1.3-7.7) k/uL Lymphocytes # (1.0-4.8) k/uL APTT (22.0-30.0) sec Sodium (137-145) mmol/L BUN (7-17) mg/dL Creatinine (0.52-1.04) mg/dL Glucose (74-99) mg/dL Ur Leukocyte Esterase Small H (Negative) Urine Mucus Rare H (None) /hpf
[2019-10-27] MEDS: ATORVASTATIN 40 MG TAB PO SCH (17:24)
[2019-10-27 20:20] LABS: Glucose,Whole Blood 204 mg/dL (75-99)
[2019-10-27] MEDS: MONTELUKAST 10 MG TAB PO SCH (21:16)
[2019-10-27] MEDS: POLYETHYLENE GLYCOL 3350 17 GM POWD.PACK PO SCH (21:23)
[2019-10-28] MEDS: HYDROmorphone 1 MG/ML 1 ML SYRINGE IVP PRN ×4 (04:00→20:41)
[2019-10-28 06:16] LABS: Glucose,Whole Blood 184 mg/dL (75-99)
[2019-10-28] MEDS: LORazepam 2 MG/ML INJ IV PRN ×2 (06:56→14:57)
[2019-10-28] MEDS: BUDESONIDE 1 MG/2 ML NEBU INHALATION SCH ×2 (08:42→20:31)
[2019-10-28] MEDS: FORMOTEROL FUMARATE 20 MCG/2 ML NEBU INHALATION SCH ×2 (08:42→20:43)
[2019-10-28] MEDS: ALBUTEROL NEBULIZED 2.5 MG/3 ML INHALATION SCH ×4 (08:42→20:31)
[2019-10-28] MEDS: HYDROCORTISONE SUCCINATE 100 MG/2 ML VIAL IV SCH ×2 (09:33→16:04)
[2019-10-28] MEDS: LISINOPRIL 2.5 MG TAB PO SCH (09:33)
[2019-10-28] MEDS: METOPROLOL TARTRATE 12.5 MG TAB PO SCH ×2 (09:34→20:27)
[2019-10-28] MEDS: PANTOPRAZOLE 40 MG TABLET PO SCH (09:34)
[2019-10-28] MEDS: FUROSEMIDE 20 MG TAB PO SCH (09:34)
[2019-10-28] MEDS: MORPHINE SULFATE ER 15 MG TABLET PO SCH (09:34)
[2019-10-28] MEDS: SPIRONOLACTONE 25 MG TAB PO SCH (09:40)
--- NOTE | 2019-10-28 11:48 | P.PN ---
Subjective Progress Note Date: 10/28/19 Principal diagnosis: Left hip septic No fracture of the femur, status post fall 79-year-old female patient with advanced COPD with chronic hypoxic respiratory failure and based on FEV1 of 41% of predicted and chronic steroid use at a dose of 5 mg of prednisone daily basis. She also has history of rheumatoid arthritis maintained on 5 mg of prednisone, coronary artery disease, COPD and hypertension. Previous cardiac catheterization and stenting of the RCA and LAD has been done on this patient. The patient came into the hospital after she had a fall at the skilled nursing. She fell out of her wheelchair and she sustained a fracture to her left hip. She came into the emergency department having difficulties with pain and mobility. The x-ray of the left hip showed an acute subcapital fracture of the left femur. Coagulation profile is within normal. Renal function shows a BUN of 33 with a creatinine of 1.26. This patient has normal liver function tests and the rest of the blood work is within normal. She is a permanent skilled nursing resident. She is residing at [facility]. The patient has limited exercise capacity she gets short of breath with minimal amount of activity due to her advanced COPD. She has been on Advair as maintenance and she does albuterol ipratropium nebulized treatment on an as needed basis. She has difficulty with mobility and gait. No joint deformities other than her chronic deformities related to rheumatoid arthritis. She has not had any previous falls. The patient has no cough and congestion has been much subsided. No swelling lower extremities. No fever or chills. No thrush. She is edentulous. No aspiration. She is unable to perform activities of daily today life independently and she needs help. Her last pneumonia shot was around 3 years ago. Good appetite. No altered mentation. The patient is seen today 10/28/2019 in follow-up on the selective care unit. She is awake and alert. She is currently resting in bed. More comfortable today compared to yesterday. Pain is better controlled. She is maintaining good O2 saturations in the 90s on 2 L/m per nasal cannula. She's afebrile. Hemodynamically stable. Plan is for surgical repair of the left hip fracture today. Objective - Vital Signs Vital signs: Vital Signs Temp 98.1 F 10/28/19 11:06 Pulse 77 10/28/19 11:06 Resp 18 10/28/19 11:06 BP 122/58 10/28/19 11:06 Pulse Ox 97 10/28/19 11:06 Intake & Output 10/27/19 10/28/19 10/28/19 18:59 06:59 18:59 Intake Total 570 Output Total 650 Balance 570 -650 Weight 73.5 kg Intake: Intake, IV Titration 480 Amount Sodium Chloride 0.9% 1, 480 000 ml @ 80 mls/hr IV . [id number] [facility] Rx#:[id number] Oral 90 Output: Urine 650 Other: Voiding Method Indwelling Catheter Indwelling Catheter Indwelling Catheter # Voids 0 400 - Exam General Appearance pleasant 79-year-old female patient, on 2 L nasal cannula with O2 saturation 97%, no diaphoresis, no respiratory distress, speech not interrupted by breaths, no dyspnea, no pallor, not cachectic, well nourished, appears well HEENT no pursed lip breathing, no jugular venous distention, no mucous membrane cyanosis, no perioral cyanosis, mallampati classification: class 1, Mallampati Classification: Class 3 (edentulous) Chest no barrel chest, no retractions, no sternocleidomastoid muscle contractions, no supraclavicular retractions, no intercostal retractions, no prolonged expiratory wheezing, no decreased air movement, no rhonchi, no hyperinflation, decreased air movement (crackles in the lung bases more so on the left and thoracolumbar kyphoscoliosis.) Heart no right ventricular heave, no distant heart sounds, no s3 gallop GI bowel sounds: hyperactive (borborygmi), bowel sounds: diminished or absent Extremities no cyanosis, no clubbing, no edema, the patient has left lower extremity is externally rotated and she is neurovascularly intact. Neurologic no decreased mental status, no somnolence, no confusion Assisstive Devices: wheelchair manual Skin General Appearance normal, (normal) normal except as noted - Labs CBC & Chem 7: 10/26/19 23:25 10/26/19 23:25 Labs: Abnormal Lab Results - Last 24 Hours (Table) 10/27/19 10/27/19 10/27/19 Range/Units 12:15 17:13 20:19 POC Glucose (mg/dL) 141 H 170 H 204 H (75-99) mg/dL 10/28/19 Range/Units 06:15 POC Glucose (mg/dL) 184 H (75-99) mg/dL Assessment and Plan Assessment: 1 left hip subcapital fracture of the femur, fall related 2 left hip pain secondary to above 3 severe chronic obstructive pulmonary disease, she has severe COPD. Her FEV1 is noted of 41% of predicted.tinea the Advair. Continue the albuterol nebulized treatments every times a day. She is on prednisone 5 mg by mouth on a daily basis. Her lungs are diminished yet no signs of any pneumonia or fluid at this point in time.the patient is been stable for now and there are no active respiratory issues. She was still moving around with the help of a chair. Nevertheless, despite her limitations, she is doing well and she had an acceptable quality of life till at this point in time when she fell 4 coronary arteriosclerosis, inactive in stable and previous stenting of RCA and LAD 5 rheumatoid arthritis, on low-dose prednisone at 5 mg. No active joint swelling. 6 osteoarthritis Difficulty and mobility and the patient is moving around with the help of a wheelchair. patient is still on a combination of morphine and [place] for pain control. 7 hyperlipidemia, on Lipitor for hyperlipidemia. 8 anxiety disorder 9 scoliosis of thoracic spine 10 dementia Plan The patient was seen and evaluated by Dr. Mata Her pain is better controlled today Plan is for surgical repair of the left hip fracture We'll continue to follow I, the cosigning physician, performed a history & physical examination of the patient. Lungs sounds are clear, diminished. Maintaining good O2 saturations in the 90s on 2 L/m per nasal cannula. I discussed the assessment and plan of care with my nurse practitioner, Libia Vides. I attest to the above note as dictated by her.
[2019-10-28] MEDS ORDERED: ONDANSETRON 4 MG/2 ML VIAL ONE (12:12)
[2019-10-28] MEDS ORDERED: fentaNYL (PF) 50 MCG/ML 2 ML AMP ONE (12:12)
[2019-10-28] MEDS ORDERED: MIDAZOLAM 2 MG/2 ML VIAL ONE (12:12)
[2019-10-28] MEDS ORDERED: PHENYLEPHRINE-0.9% NACL SYG 1 MG/10 ML SYRINGE ONE (12:12)
[2019-10-28] MEDS ORDERED: KETAMINE 10 MG/ML 20 ML VIAL ONE (12:12)
[2019-10-28] MEDS ORDERED: PROPOFOL 10 MG/ML 20 ML VIAL IV ONE (12:12)
[2019-10-28] MEDS ORDERED: IV FLUID CONTINUATION 600 ML IV ONE (12:16)
[2019-10-28] MEDS ORDERED: LACTATED RINGERS 1,000 ML IV ONE (12:54)
[2019-10-28] MEDS ORDERED: ceFAZolin 3,000 MG in SODIUM CHLORIDE 0.9% IRRIGATIO 3,000 ML IRRIGATION ONE (13:04)
[2019-10-28] MEDS ORDERED: MAGNESIUM HYDROXIDE 2,400 MG/10 ML CUP PO PRN (13:38)
[2019-10-28] MEDS ORDERED: NALOXONE 0.4 MG/ML 1 ML VIAL IV PRN (13:38)
[2019-10-28] MEDS ORDERED: ACETAMINOPHEN TAB 325 MG TAB PO PRN (13:38)
--- NOTE | 2019-10-28 14:06 | P.OP ---
Date of Procedure: 10/28/19 Preoperative Diagnosis: Displaced left subcapital femoral neck fracture Postoperative Diagnosis: Same Procedure(s) Performed: Left hip hemiarthroplastypress-fit Implants: Depuy Corail size 12 standard collared press-fit femoral stem, 48 mm unipolar head, -3 neck Anesthesia: spinal Surgeon: Hao Bird Dial Mounter #1: Craig Alicia Estimated Blood Loss (ml): 100 Pathology: other (Femoral head) Condition: stable Disposition: PACU Indications for Procedure: Patient is a 79-year-old female who presented after a fall from her wheelchair with a left displaced subcapital femoral neck fracture. A discussion the risks and benefits of operative intervention was made with patient and her family. She opted to proceed. Operative risks to include infection, neurovascular injury, fracture, leg length discrepancy, possible loosening and need for subsequent procedures was discussed. Informed consent was obtained. Operative Findings: As below Description of Procedure: The patient was brought to the operating room, and after induction of spinal anesthesia was placed in the lateral decubitus position. Bony prominences were appropriately padded. The pelvis stabilized perpendicular floor with a pegboard. The left lower extremity was prepped and draped in normal fashion. A 12 cm incision was then made centered over the greater trochanter extending proximally to level ASIS and distally in line with the femoral shaft. Skin and subcu tissues were divided sharply. Electrocautery was used for hemostasis. The gluteus maximums fascia and the fascia willy was split in line with the skin incision. The muscle fibers were bluntly dissected proximally. A self- retaining retractor was placed. The anterior and posterior margins agrees medius muscles identified and 2 two thirds detached from the greater trochanter with electrocautery. The gluteus minimus tendon was identified and detached in a similar fashion. A T-shaped capsulotomy was performed. The capsular flaps were tagged with #2 Ethibond suture. The lower neck cut was made approximately 1 1/2 cm above the levels lesser trochanter at a 45 in the shaft with a sagittal saw. The femoral head was removed with a corkscrew. The acetabular was inspected. No significant chondral injury was noted. Attention was then paid towards preparing the proximal femur. A box chisel was used to open the metaphyseal region. A canal finder was used to find the femoral canal. Sequential broaching was then performed up to a size 12 broach. The broach was placed in approximately 15 of anteversion with the leg perpendicular to the floor. There was good rotational stability. A calcar mill was used to fashion the medial calcar. A standard neck along with a -3/48 mm unipolar head was placed. The hip was gently relocated. It was taken through range of motion. It is felt to be stable in flexion and extension with internal and external rotation. I felt there was adequate sikhism of soft tissue tension. Hip was gently dislocated. The trial components were then removed. Pulsatile lavage was utilized. The final size 12 standard press-fit collared femoral stem was inserted again with the leg perpendicular to the floor in 15 of anteversion. This was fully seated. Again there was good rotational stability. The -3 neck along with 48 mm unipolar head was gently impacted. The hip was gently reduced. Again it was taken through range of motion felt to be stable in flexion and extension. Again there is adequate sikhism of soft tissue tension. Pulsatile lavage was again utilized. The capsular layer was closed with interrupted #2 Ethibond suture. The gluteus medius and minimus tendons reattached the greater trochanter with #2 Ethibond suture. There is minimal drainage at this point therefore a deep drain was not placed. The fascia willy and gluteus shaina fascia was closed with #2 Ethibond suture. The deep subcutaneous tissues reapproximated interrupted 0 Vicryl suture. The superficial subcutaneous tissues were reapproximated interrupted 2-0 Vicryl sutures. The skin was reapproximated with 3-0 subcuticular strata fix suture. Skin tape and adhesive was applied. A sterile dressing was applied. The patient was then awoken from sedation and transferred to recovery room in fair condition. Blood loss was estimated 100 mL. No complications were incurred. Sponge and needle counts were correct at the end the case.
[2019-10-28 14:24] LABS: Glucose,Whole Blood 115 mg/dL (75-99)
[2019-10-28] MEDS: MEGESTROL 400 MG/10 ML CUP PO SCH (14:25)
[2019-10-28] MEDS: HEPARIN SODIUM,PORCINE 5,000 UNIT/ML 1 ML VIAL SQ SCH ×2 (14:25→20:27)
--- NOTE | 2019-10-28 14:43 | XR ---
EXAMINATION TYPE: XR Hip Limited LT DATE OF EXAM: 10/28/2019 COMPARISON: 10/26/2019 HISTORY: Postop TECHNIQUE: FINDINGS: A single view shows a left hip prosthesis. Components are in anatomic position. There is os teopenia. IMPRESSION: No complicating process seen.
[2019-10-28 17:14] LABS: Glucose,Whole Blood 140 mg/dL (75-99)
[2019-10-28] MEDS: HYDROcodone/APAP 5-325MG 1 EACH TAB PO PRN (17:47)
[2019-10-28] MEDS: ATORVASTATIN 40 MG TAB PO SCH (17:47)
--- NOTE | 2019-10-28 19:56 | P.PN ---
Progress Note - Text Progress Note Date: 10/28/19 - Chief Complaint Left hip pain Consultation: This is a 79-year-old patient who follows a Dr. Salas at the [facility]. Chronic stable medical conditions include coronary artery. The stent, COPD, GERD, hypertension, rheumatoid arthritis, chronic hydronephrosis of the left kidney, chronic diverticulosis hyperlipidemia rheumatoid arthritis. Normally uses a wheelchair. Patient fell on the left hip fracturing fracturing the same. Significant pain of the fracture site. No change in the breathing pattern. This was a mechanical fall. No dizziness no lightheadedness. Does not complaint of any chest pain. Patient about the most detailed historian. No fever no chills. Appetite is fair. Today-underwent left hip hemiarthroplasty. Laying in bed. Tired. Not much of an appetite. Some pain is present. Review of systems: Was done for constitutional, cardiovascular, GI, pulmonary. Musculoskeletal, relevant finding as above Active Medications Acetaminophen (Tylenol Tab) 650 mg PO Q4HR PRN PRN Reason: Pain Scale 1 to 5 Hydrocodone Bitart/Acetaminophen (Edwards 5-325) 1 each PO Q4HR PRN PRN Reason: Pain Last Admin: 10/27/19 21:16 Dose: 1 each Documented by: Hydrocodone Bitart/Acetaminophen (Edwards 5-325) 2 each PO Q6HR PRN PRN Reason: Pain Scale 6 to 10 Last Admin: 10/28/19 17:47 Dose: 2 each Documented by: Albuterol Sulfate (Ventolin Nebulized) 2.5 mg INHALATION RT-QID [facility] Last Admin: 10/28/19 15:20 Dose: 2.5 mg Documented by: Artificial Tears (Artificial Tear Drops) 1 drops BOTH EYES QID PRN PRN Reason: Dry Eye(s) Atorvastatin Calcium (Lipitor) 40 mg PO AC-SUPPER [facility] Last Admin: 10/28/19 17:47 Dose: 40 mg Documented by: Budesonide (Pulmicort) 1 mg INHALATION RT-BID [facility] Last Admin: 10/28/19 08:42 Dose: 1 mg Documented by: Formoterol Fumarate (Perforomist) 20 mcg INHALATION RT-BID [facility] Last Admin: 10/28/19 08:42 Dose: 20 mcg Documented by: Furosemide (Lasix) 10 mg PO QAM [facility] Last Admin: 10/28/19 09:34 Dose: 10 mg Documented by: Heparin Sodium (Porcine) (Heparin) 5,000 unit SQ Q12HR [facility] Last Admin: 10/28/19 14:25 Dose: Not Given Documented by: Hydrocortisone Sodium Succinate (Solu-Cortef) 50 mg IV Q8HR [facility] Last Admin: 10/28/19 16:04 Dose: 50 mg Documented by: Hydromorphone HCl (Dilaudid) 1 mg IVP Q3HR PRN PRN Reason: Pain Last Admin: 10/28/19 16:05 Dose: 1 mg Documented by: Cefazolin Sodium 2 gm/ Sodium (Chloride) 50 mls @ 100 mls/hr IVPB Q8H [facility] Stop: 10/29/19 04:29 Lisinopril (Zestril) 1.25 mg PO [facility] Last Admin: 10/28/19 09:33 Dose: 1.25 mg Documented by: Lorazepam (Ativan) 0.5 mg IV Q6HR PRN PRN Reason: Anxiety Last Admin: 10/28/19 14:57 Dose: 0.5 mg Documented by: Magnesium Hydroxide (Milk Of Magnesia) 2,400 mg PO DAILY PRN PRN Reason: Constipation Megestrol Acetate (Megace) 400 mg PO [facility] Last Admin: 10/28/19 14:25 Dose: Not Given Documented by: Metoprolol Tartrate (Lopressor) 12.5 mg PO BID [facility] Last Admin: 10/28/19 09:34 Dose: 12.5 mg Documented by: Montelukast Sodium (Singulair) 10 mg PO [facility] Last Admin: 10/27/19 21:16 Dose: 10 mg Documented by: Morphine Sulfate (Ms Contin) 15 mg PO DAILY [facility] Last Admin: 10/28/19 09:34 Dose: 15 mg Documented by: Naloxone HCl (Narcan) 0.2 mg IV Q2M PRN PRN Reason: Opioid Reversal Nitroglycerin (Nitrostat) 0.4 mg SUBLINGUAL Q5M PRN PRN Reason: Chest Pain Ondansetron HCl (Zofran) 4 mg IVP Q6HR PRN PRN Reason: Nausea And Vomiting Pantoprazole Sodium (Protonix) 40 mg PO AC-BRKFST [facility] Last Admin: 10/28/19 09:34 Dose: 40 mg Documented by: Polyethylene Glycol (Miralax) 17 gm PO [facility] Last Admin: 10/27/19 21:23 Dose: Not Given Documented by: Senna/Docusate Sodium (Senokot-S) 2 each PO BID PRN PRN Reason: Constipation Last Admin: 10/27/19 11:14 Dose: 2 each Documented by: Spironolactone (Aldactone) 25 mg PO QAM [facility] Last Admin: 10/28/19 09:40 Dose: 25 mg Documented by: Physical examination: VITAL SIGNS: 96.9, 83, 16, 95/53, 98% on 2 L GENERAL: Laying in bed, awake EYES: Pupils equal. Conjunctiva normal. HEENT: External appearance of nose and ears normal, oral cavity grossly normal. NECK: JVD not raised; masses not palpable. HEART: First and second heart sounds are normal; no edema. LUNGS: Respiratory rate normal; clear to auscultation. ABDOMEN: Soft, nontender, liver spleen not palpable, no masses palpable. PSYCH: Answering simple questions. MUSCULOSKELETAL: Limited range of motion left hip. Evidence of OA in the joints INVESTIGATIONS, reviewed in the clinical context: White count 11.6 hemoglobin 12.5 platelets 271 potassium 5 bun 33 creatinine 1.26 Patient's creatinine in June of this year was 1.35 UA positive for leukoesterase, small COVID-19 PCR-not detected Left hip fracture showing acute impacted subcapital fracture of the left femur EKG tracing personally reviewed by me shows normal sinus rhythm Chest x-ray film personally reviewed by me shows-lung castillo to be clear Assessment: -Acute left femur impacted subcapital fracture secondary to mechanical fall- status post left hip hemiarthroplasty today -Coronary artery disease with stent -Obesity BMI 31.4 -COPD -GERD -Essential hypertension -Rheumatoid arthritis -Chronically hydronephrotic left kidney -Colonic diverticulosis -Hyperlipidemia -Chronic kidney disease stage III Plan: -I talked to the the patient. Encouraged oral intake. On subcu heparin. Thank you Dr. Weiss
[2019-10-28 20:19] LABS: Glucose,Whole Blood 161 mg/dL (75-99)
[2019-10-28] MEDS: MONTELUKAST 10 MG TAB PO SCH (20:27)
[2019-10-28] MEDS: POLYETHYLENE GLYCOL 3350 17 GM POWD.PACK PO SCH (20:28)
[2019-10-29] MEDS: HYDROCORTISONE SUCCINATE 100 MG/2 ML VIAL IV SCH ×3 (00:01→16:45)
[2019-10-29] MEDS: HYDROcodone/APAP 5-325MG 1 EACH TAB PO PRN ×3 (03:33→21:44)
[2019-10-29] MEDS: PANTOPRAZOLE 40 MG TABLET PO SCH (06:49)
[2019-10-29 06:56] LABS: Basophils % (A) 0 %; Eosinophils % (A) 0 %; HCT 30.8 % (34.0-46.0); Hypochromasia Slight; Lymphocytes # (A) 0.5 k/uL (1.0-4.8); Lymphocytes % (A) 5 %; MCH 27.9 pg (25.0-35.0); MCHC 30.2 g/dL (31.0-37.0); MCV 92.6 fL (80.0-100.0); Mean Platelet Volume 7.2; Monocytes # (A) 0.7 k/uL (0-1.0); Monocytes % (A) 8 %; Neutrophils # (A) 8.1 k/uL (1.3-7.7); Neutrophils % (A) 86 %; Platelet Count 203 k/uL (150-450); RBC 3.33 m/uL (3.80-5.40); RDW 14.1 % (11.5-15.5); WBC 9.5 k/uL (3.8-10.6)
[2019-10-29 06:59] LABS: HGB 9.3 gm/dL (11.4-16.0)
[2019-10-29] MEDS: ALBUTEROL NEBULIZED 2.5 MG/3 ML INHALATION SCH ×4 (07:05→19:38)
[2019-10-29] MEDS: BUDESONIDE 1 MG/2 ML NEBU INHALATION SCH ×2 (07:05→19:38)
[2019-10-29] MEDS: FORMOTEROL FUMARATE 20 MCG/2 ML NEBU INHALATION SCH ×2 (07:05→19:38)
[2019-10-29 07:20] LABS: Glucose,Whole Blood 191 mg/dL (75-99)
[2019-10-29] MEDS: HYDROmorphone 1 MG/ML 1 ML SYRINGE IVP PRN (07:51)
[2019-10-29] MEDS: HEPARIN SODIUM,PORCINE 5,000 UNIT/ML 1 ML VIAL SQ SCH ×2 (10:09→21:34)
[2019-10-29] MEDS: METOPROLOL TARTRATE 12.5 MG TAB PO SCH ×2 (10:10→21:34)
[2019-10-29] MEDS: SPIRONOLACTONE 25 MG TAB PO SCH (10:10)
[2019-10-29] MEDS: MORPHINE SULFATE ER 15 MG TABLET PO SCH (10:10)
[2019-10-29] MEDS: LISINOPRIL 2.5 MG TAB PO SCH (10:10)
[2019-10-29] MEDS: MEGESTROL 400 MG/10 ML CUP PO SCH (10:11)
[2019-10-29] MEDS: FUROSEMIDE 20 MG TAB PO SCH (10:11)
[2019-10-29 12:03] LABS: Glucose,Whole Blood 162 mg/dL (75-99)
--- NOTE | 2019-10-29 13:35 | P.PN ---
Subjective Progress Note Date: 10/29/19 Principal diagnosis: Status post left hip hemiarthroplasty Patient is evaluated today at bedside, she is resting comfortably. She has smooth discomfort involving the left leg. She is a nonambulator chronically. She lives at [facility]. She denies any chest pain or shortness of breath at this time. Objective - Vital Signs Vital signs: Vital Signs Temp 98.5 F 10/29/19 08:03 Pulse 80 10/29/19 11:36 Resp 18 10/29/19 08:03 BP 127/59 10/29/19 08:03 Pulse Ox 96 10/29/19 08:03 Intake & Output 10/28/19 10/29/19 10/29/19 18:59 06:59 18:59 Intake Total 1451 480 236 Output Total 800 340 Balance 651 140 236 Weight 79.5 kg Intake: IV 1451 ceFAZolin 2 gm In Sodium 0 Chloride 0.9% 50 ml @ 100 mls/hr IVPB Q8H [facility] Rx#: [id number] Oral 480 236 Output: Urine 700 340 Estimated Blood Loss 100 Other: Voiding Method Indwelling Catheter Indwelling Catheter - Exam Left lower extremity: Incision is clean, dry, and intact. The exofin fusion tape is in good cond ition. There is minimal soft tissue swelling and ecchymosis surrounding the medial and lateral aspects of the incision. Calf is soft, no tenderness with palpation. Plantar flexion, dorsiflexion, EHL, FHL are intact. Sensory exam to light touch throughout the extremity is intact, dorsal pedis pulses 2+. - Labs CBC & Chem 7: 10/29/19 06:04 10/26/19 23:25 Labs: Abnormal Lab Results - Last 24 Hours (Table) 10/28/19 10/28/19 10/28/19 Range/Units 14:22 16:43 20:18 RBC (3.80-5.40) m/uL Hgb (11.4-16.0) gm/dL Hct (34.0-46.0) % MCHC (31.0-37.0) g/dL Neutrophils # (1.3-7.7) k/uL Lymphocytes # (1.0-4.8) k/uL POC Glucose (mg/dL) 115 H 140 H 161 H (75-99) mg/dL 10/29/19 10/29/19 10/29/19 Range/Units 06:04 07:19 12:01 RBC 3.33 L (3.80-5.40) m/uL Hgb 9.3 L D (11.4-16.0) gm/dL Hct 30.8 L (34.0-46.0) % MCHC 30.2 L (31.0-37.0) g/dL Neutrophils # 8.1 H (1.3-7.7) k/uL Lymphocytes # 0.5 L (1.0-4.8) k/uL POC Glucose (mg/dL) 191 H 162 H (75-99) mg/dL Assessment and Plan Assessment: Status post left hip hemiarthroplasty Plan: Pain control, continue current medications GI and DVT prophylaxis, continue subcu medication Daily dressing changes Encourage incentive spirometer Monitor hemoglobin, we'll check CBC tomorrow morning Other medical specialists recommendations Anticipate discharge back to [facility] tomorrow Time with Patient: Less than 30
--- NOTE | 2019-10-29 14:45 | P.PN ---
Subjective Progress Note Date: 10/29/19 Principal diagnosis: Left hip fracture, status post surgical repair 79-year-old female patient with advanced COPD with chronic hypoxic respiratory failure and based on FEV1 of 41% of predicted and chronic steroid use at a dose of 5 mg of prednisone daily basis. She also has history of rheumatoid arthritis maintained on 5 mg of prednisone, coronary artery disease, COPD and hyp ertension. Previous cardiac catheterization and stenting of the RCA and LAD has been done on this patient. The patient came into the hospital after she had a fall at the senior living. She fell out of her wheelchair and she sustained a fracture to her left hip. She came into the emergency department having difficulties with pain and mobility. The x-ray of the left hip showed an acute subcapital fracture of the left femur. Coagulation profile is within normal. Renal function shows a BUN of 33 with a creatinine of 1.26. This patient has normal liver function tests and the rest of the blood work is within normal. She is a permanent senior living resident. She is residing at [facility]. The patient has limited exercise capacity she gets short of breath with minimal amount of activity due to her advanced COPD. She has been on Advair as maintenance and she does albuterol ipratropium nebulized treatment on an as needed basis. She has difficulty with mobility and gait. No joint deformities other than her chronic deformities related to rheumatoid arthritis. She has not had any previous falls. The patient has no cough and congestion has been much subsided. No swelling lower extremities. No fever or chills. No thrush. She is edentulous. No aspiration. She is unable to perform activities of daily today life independently and she needs help. Her last pneumonia shot was around 3 y ears ago. Good appetite. No altered mentation. The patient is seen today 10/28/2019 in follow-up on the selective care unit. She is awake and alert. She is currently resting in bed. More comfortable today compared to yesterday. Pain is better controlled. She is maintaining good O2 saturations in the 90s on 2 L/m per nasal cannula. She's afebrile. Hemodynamically stable. Plan is for surgical repair of the left hip fracture today. On 10/29/2019 patient seen in follow-up on selective care unit, she is calm and comfortable, her pain is better controlled on today's exam, she seems a lot more comfortable compared to yesterday, she denies any difficulty breathing, lung sounds are clear to auscultation today's exam, she is on 2 L of oxygen pulse ox of 96%, no fever or chills, hemodynamically stable. She denies any chest pain or shortness of breath. He is working on incentive spirometer. Her chest x-ray on admission showed minimal left lung base atelectasis or scarring. His labs h ave been reviewed showing white blood cell count of 9.5, hemoglobin of 9.3. No acute events overnight. She is on maintenance dose of Pulmicort, Perforomist, and when necessary albuterol inhaler. Doing well. Today is postoperative day 1 status post left hip hemiarthroplasty Objective - Vital Signs Vital signs: Vital Signs Temp 98.5 F 10/29/19 08:03 Pulse 80 10/29/19 11:36 Resp 18 10/29/19 08:03 BP 127/59 10/29/19 08:03 Pulse Ox 96 10/29/19 08:03 Intake & Output 10/28/19 10/29/19 10/29/19 18:59 06:59 18:59 Intake Total 1451 480 796 Output Total 800 340 Balance 651 140 796 Weight 79.5 kg Intake: IV 1451 ceFAZolin 2 gm In Sodium 0 Chloride 0.9% 50 ml @ 100 mls/hr IVPB Q8H [facility] Rx#: [id number] Intake, IV Titration 560 Amount IV Fluid Continuation 600 560 ml @ 0 mls/hr IV .[facility] Rx#:[id number] Oral 480 236 Output: Urine 700 340 Estimated Blood Loss 100 Other: Voiding Method Indwelling Catheter Indwelling Catheter - Exam GENERAL EXAM: Alert, very pleasant, 79-year-old white female on 2 L of oxygen and the pulse ox of 96% comfortable in no apparent distress. HEAD: Normocephalic/atraumatic. EYES: Normal reaction of pupils, equal size. Conjunctiva pink, sclera white. NOSE: Clear with pink turbinates. THROAT: No erythema or exudates. NECK: No masses, no JVD, no thyroid enlargement, no adenopathy. CHEST: No chest wall deformity. Symmetrical expansion. LUNGS: Equal air entry with no crackles, wheeze, rhonchi or dullness. CVS: Regular rate and rhythm, normal S1 and S2, no gallops, no murmurs, no rubs ABDOMEN: Soft, nontender. No hepatosplenomegaly, normal bowel sounds, no guarding or rigidity. EXTREMITIES: No clubbing, no edema, no cyanosis, 2+ pulses and upper and lower extremities. Left hip incision clean dry and intact MUSCULOSKELETAL: Muscle strength and tone normal. SPINE: No scoliosis or deformity SKIN: No rashes CENTRAL NERVOUS SYSTEM: Alert and oriented -3. No focal deficits, tone is normal in all 4 extremities. PSYCHIATRIC: Alert and oriented -3. Appropriate affect. Intact judgment and insight. - Labs CBC & Chem 7: 10/29/19 06:04 10/26/19 23:25 Labs: Abnormal Lab Results - Last 24 Hours (Table) 10/28/19 10/28/19 10/29/19 Range/Units 16:43 20:18 06:04 RBC 3.33 L (3.80-5.40) m/uL Hgb 9.3 L D (11.4-16.0) gm/dL Hct 30.8 L (34.0-46.0) % MCHC 30.2 L (31.0-37.0) g/dL Neutrophils # 8.1 H (1.3-7.7) k/uL Lymphocytes # 0.5 L (1.0-4.8) k/uL POC Glucose (mg/dL) 140 H 161 H (75-99) mg/dL 10/29/19 10/29/19 Range/Units 07:19 12:01 RBC (3.80-5.40) m/uL Hgb (11.4-16.0) gm/dL Hct (34.0-46.0) % MCHC (31.0-37.0) g/dL Neutrophils # (1.3-7.7) k/uL Lymphocytes # (1.0-4.8) k/uL POC Glucose (mg/dL) 191 H 162 H (75-99) mg/dL Assessment and Plan Plan: Assessment: 1 left hip subcapital fracture of the femur, fall related, status post left hemiarthroplasty, postop day 1 2 left hip pain secondary to above 3 severe chronic obstructive pulmonary disease, she has severe COPD. Her FEV1 is noted of 41% of predicted.tinea the Advair. Continue the albuterol nebulized treatments every times a day. She is on prednisone 5 mg by mouth on a daily basis. Her lungs are diminished yet no signs of any pneumonia or fluid at this point in time.the patient is been stable for now and there are no active respiratory issues. She was still moving around with the help of a chair. Nevertheless, despite her limitations, she is doing well and she had an acceptable quality of life till at this point in time when she fell 4 coronary arteriosclerosis, inactive in stable and previous stenting of RCA and LAD 5 rheumatoid arthritis, on low-dose prednisone at 5 mg. No active joint swelling. 6 osteoarthritis Difficulty and mobility and the patient is moving around with the help of a wheelchair. patient is still on a combination of morphine and Robson for pain control. 7 hyperlipidemia, on Lipitor for hyperlipidemia. 8 anxiety disorder 9 scoliosis of thoracic spine 10 dementia Plan: Continue encouraging deep breathing and coughing, and, from pulmonary perspective her breathing is stable, she is on her home dose Pulmicort and Perforomist, her lungs are clear, no complaints of chest pain or shortness of breath. Vital signs are stable, from pulmonary perspective patient can be co nsidered for discharge to [facility] when cleared by orthopedic surgery I performed a history & physical examination of the patient and discussed their management with my nurse practitioner, Maida Booth. I reviewed the nurse practitioner's note and agree with the documented findings and plan of care. Lung sounds are positive for clear breath sounds. The findings and the impression was discussed with the patient. I attest to the documentation by the nurse practitioner. Time with Patient: Less than 30
[2019-10-29] MEDS: ATORVASTATIN 40 MG TAB PO SCH (16:45)
[2019-10-29 17:03] LABS: Glucose,Whole Blood 195 mg/dL (75-99)
[2019-10-29] MEDS: INSULIN ASPART (NovoLOG) 100 UNIT/ML VIAL SQ SCH (17:19)
--- NOTE | 2019-10-29 18:33 | P.PN ---
Progress Note - Text Progress Note Date: 10/29/19 - Chief Complaint Left hip pain Consultation: This is a 79-year-old patient who follows a Dr. Salas at the [facility]. Chronic stable medical conditions include coronary artery. The stent, COPD, GERD, hypertension, rheumatoid arthritis, chronic hydronephrosis of the left kidney, chronic diverticulosis hyperlipidemia rheumatoid arthritis. Normally uses a wheelchair. Patient fell on the left hip fracturing fracturing the same. Significant pain of the fracture site. No change in the breathing pattern. This was a mechanical fall. No dizziness no lightheadedness. Does not complaint of any chest pain. Patient about the most detailed historian. No fever no chills. Appetite is fair.left hip hemiarthroplasty-on October 27 Today-some pain of the operative site. Oral intake only slightly better. Breathing stable. Review of systems: Was done for constitutional, cardiovascular, GI, pulmonary. Musculoskeletal, relevant finding as above Active Medications Acetaminophen (Tylenol Tab) 650 mg PO Q4HR PRN PRN Reason: Pain Scale 1 to 5 Hydrocodone Bitart/Acetaminophen ([place] 5-325) 1 each PO Q4HR PRN PRN Reason: Pain Last Admin: 10/27/19 21:16 Dose: 1 each Documented by: Hydrocodone Bitart/Acetaminophen ([place] 5-325) 2 each PO Q6HR PRN PRN Reason: Pain Scale 6 to 10 Last Admin: 10/29/19 13:39 Dose: 2 each Documented by: Albuterol Sulfate (Ventolin Nebulized) 2.5 mg INHALATION RT-QID [facility] Last Admin: 10/29/19 15:47 Dose: 2.5 mg Documented by: Artificial Tears (Artificial Tear Drops) 1 drops BOTH EYES QID PRN PRN Reason: Dry Eye(s) Atorvastatin Calcium (Lipitor) 40 mg PO AC-SUPPER [facility] Last Admin: 10/29/19 16:45 Dose: 40 mg Documented by: Budesonide (Pulmicort) 1 mg INHALATION RT-BID [facility] Last Admin: 10/29/19 07:05 Dose: 1 mg Documented by: Formoterol Fumarate (Perforomist) 20 mcg INHALATION RT-BID [facility] Last Admin: 10/29/19 07:05 Dose: 20 mcg Documented by: Furosemide (Lasix) 10 mg PO QAM [facility] Last Admin: 10/29/19 10:11 Dose: 10 mg Documented by: Heparin Sodium (Porcine) (Heparin) 5,000 unit SQ Q12HR [facility] Last Admin: 10/29/19 10:09 Dose: 5,000 unit Documented by: Hydrocortisone Sodium Succinate (Solu-Cortef) 25 mg IV Q8HR [facility] Insulin Aspart (Novolog) 0 unit SQ AC-TID [facility]; Protocol Last Admin: 10/29/19 17:19 Dose: 2 unit Documented by: [facility]inop[facility] ([facility]est[facility]) [facility] Admin: 10/29/19 10:10 Dose: 1.25 mg Documented by: Lorazepam (Ativan) 0.5 mg IV Q6HR PRN PRN Reason: Anxiety Last Admin: 10/28/19 14:57 Dose: 0.5 mg Documented by: Magnesium Hydroxide (Milk Of Magnesia) 2,400 mg PO DAILY PRN PRN Reason: Constipation Megestrol Acetate (Megace) 400 mg PO [facility] Last Admin: 10/29/19 10:11 Dose: 400 mg Documented by: Metoprolol Tartrate (Lopressor) 12.5 mg PO BID [facility] Last Admin: 10/29/19 10:10 Dose: 12.5 mg Documented by: Montelukast Sodium (Singulair) 10 mg PO [facility] Last Admin: 10/28/19 20:27 Dose: 10 mg Documented by: Morphine Sulfate (Ms Contin) 15 mg PO DAILY [facility] Last Admin: 10/29/19 10:10 Dose: 15 mg Documented by: Naloxone HCl (Narcan) 0.2 mg IV Q2M PRN PRN Reason: Opioid Reversal Nitroglycerin (Nitrostat) 0.4 mg SUBLINGUAL Q5M PRN PRN Reason: Chest Pain Ondansetron HCl (Zofran) 4 mg IVP Q6HR PRN PRN Reason: Nausea And Vomiting Pantoprazole Sodium (Protonix) 40 mg PO AC-BRKFST [facility] Last Admin: 10/29/19 06:49 Dose: 40 mg Documented by: Polyethylene Glycol (Miralax) 17 gm PO [facility] Last Admin: 10/28/19 20:28 Dose: 17 gm Documented by: Senna/Docusate Sodium (Senokot-S) 2 each PO BID PRN PRN Reason: Constipation Last Admin: 05/16/20 11:14 Dose: 2 each Documented by: Spironolactone (Aldactone) 25 mg PO [facility] Last Admin: 10/29/19 10:10 Dose: 25 mg Documented by: Physical examination: VITAL SIGNS: 98.5, 87, 18, 127/59, 96% on 2 L GENERAL: Laying in bed, awake EYES: Pupils equal. Conjunctiva normal. HEENT: External appearance of nose and ears normal, oral cavity grossly normal. NECK: JVD not raised; masses not palpable. HEART: First and second heart sounds are normal; no edema. LUNGS: Respiratory rate normal; clear to auscultation. ABDOMEN: Soft, nontender, liver spleen not palpable, no masses palpable. PSYCH: Answering simple questions. MUSCULOSKELETAL: Limited range of motion left hip. Evidence of OA in the joints INVESTIGATIONS, reviewed in the clinical context: White count 9.5 hemoglobin 9.3 Previous testing White count 11.6 hemoglobin 12.5 platelets 271 potassium 5 bun 33 creatinine 1.26 Patient's creatinine in June of this year was 1.35 UA positive for leukoesterase, small COVID-19 PCR-not detected Left hip fracture showing acute impacted subcapital fracture of the left femur EKG tracing personally reviewed by me shows normal sinus rhythm Chest x-ray film personally reviewed by me shows-lung castillo to be clear Assessment: -Acute left femur impacted subcapital fracture secondary to mechanical fall- status post left hip hemiarthroplasty today -Coronary artery disease with stent -Obesity BMI 31.4 -COPD -GERD -Essential hypertension -Rheumatoid arthritis -Chronically hydronephrotic left kidney -Colonic diverticulosis -Hyperlipidemia -Chronic kidney disease stage III -Acute blood loss anemia, postprocedure I suspect from surgery -Hyperglycemia from steroids, no diabetes Plan: -Cut back hydrocortisone to 25 mg every 8.. The patient oral prednisone tomorrow morning at 20 mg and taper Thank you Dr. Weiss
[2019-10-29] MEDS ORDERED: HYDROCORTISONE SUCCINATE 100 MG/2 ML VIAL IV SCH (18:45)
[2019-10-29 20:44] LABS: Glucose,Whole Blood 218 mg/dL (75-99)
[2019-10-29] MEDS: POLYETHYLENE GLYCOL 3350 17 GM POWD.PACK PO SCH (21:34)
[2019-10-29] MEDS: MONTELUKAST 10 MG TAB PO SCH (21:34)
[2019-10-30] MEDS ORDERED: HYDROCORTISONE SUCCINATE 100 MG/2 ML VIAL IV SCH
[2019-10-30 06:21] LABS: Glucose,Whole Blood 202 mg/dL (75-99)
[2019-10-30] MEDS: PANTOPRAZOLE 40 MG TABLET PO SCH (06:25)
[2019-10-30] MEDS: INSULIN ASPART (NovoLOG) 100 UNIT/ML VIAL SQ SCH ×2 (06:25→12:52)
[2019-10-30 06:28] LABS: Hypochromasia Slight; MCH 29.2 pg (25.0-35.0); MCHC 31.2 g/dL (31.0-37.0); MCV 93.7 fL (80.0-100.0); Mean Platelet Volume 7.1; Platelet Count 205 k/uL (150-450); RBC 3.09 m/uL (3.80-5.40); RDW 14.2 % (11.5-15.5); WBC 9.1 k/uL (3.8-10.6)
[2019-10-30] MEDS: HYDROcodone/APAP 5-325MG 1 EACH TAB PO PRN ×2 (06:33→13:18)
[2019-10-30 06:51] VITALS: RESP 16
[2019-10-30] MEDS: ALBUTEROL NEBULIZED 2.5 MG/3 ML INHALATION SCH ×2 (08:17→12:06)
[2019-10-30] MEDS: FORMOTEROL FUMARATE 20 MCG/2 ML NEBU INHALATION SCH (08:17)
[2019-10-30] MEDS: BUDESONIDE 1 MG/2 ML NEBU INHALATION SCH (08:17)
[2019-10-30 08:19] VITALS: BP 135/66; TEMP 98.2
[2019-10-30] MEDS: LISINOPRIL 2.5 MG TAB PO SCH (08:19)
[2019-10-30] MEDS: METOPROLOL TARTRATE 12.5 MG TAB PO SCH (08:20)
[2019-10-30] MEDS: MORPHINE SULFATE ER 15 MG TABLET PO SCH (08:20)
[2019-10-30] MEDS: SPIRONOLACTONE 25 MG TAB PO SCH (08:20)
[2019-10-30] MEDS: HEPARIN SODIUM,PORCINE 5,000 UNIT/ML 1 ML VIAL SQ SCH (08:20)
[2019-10-30] MEDS: FUROSEMIDE 20 MG TAB PO SCH (08:20)
[2019-10-30] MEDS: MEGESTROL 400 MG/10 ML CUP PO SCH (08:26)
[2019-10-30 08:45] VITALS: PULSE 76
[2019-10-30] MEDS ORDERED: predniSONE 20 MG TAB PO SCH (09:00)
--- NOTE | 2019-10-30 09:51 | P.PN ---
Subjective Progress Note Date: 10/30/19 Principal diagnosis: Status post left hip hemiarthroplasty Patient is evaluated today at bedside, she is resting comfortably. She is a nonambulator chronically. She denies any chest pain or shortness of breath at this time. Objective - Vital Signs Vital signs: Vital Signs Temp 98.2 F 10/30/19 08:15 Pulse 76 10/30/19 08:44 Resp 16 10/30/19 08:16 BP 135/66 10/30/19 08:15 Pulse Ox 98 10/30/19 08:15 Intake & Output 10/29/19 10/30/19 10/30/19 18:59 06:59 18:59 Intake Total 1036 90 Output Total 500 510 Balance 536 -510 90 Weight 80.1 kg Intake: Intake, IV Titration 560 Amount IV Fluid Continuation 600 560 ml @ 0 mls/hr IV .[facility] Rx#:[id number] Oral 476 90 Output: Urine 500 510 Other: Voiding Method Indwelling Catheter Indwelling Catheter Indwelling Catheter # Voids 1 - Exam Left lower extremity: Incision is clean, dry, and intact. The exofin fusion tape is in good condition. There is minimal soft tissue swelling and ecchymosis surrounding the medial and lateral aspects of the incision. Calf is soft, no tenderness with palpation. Plantar flexion, dorsiflexion, EHL, FHL are intact. Sensory exam to light touch throughout the extremity is intact, dorsal pedis pulses 2+. - Labs CBC & Chem 7: 10/30/19 05:46 10/26/19 23:25 Labs: Abnormal Lab Results - Last 24 Hours (Table) 10/29/19 10/29/19 10/29/19 Range/Units 12:01 17:02 20:43 RBC (3.80-5.40) m/uL Hgb (11.4-16.0) gm/dL Hct (34.0-46.0) % POC Glucose (mg/dL) 162 H 195 H 218 H (75-99) mg/dL 10/30/19 10/30/19 Range/Units 05:46 06:20 RBC 3.09 L (3.80-5.40) m/uL Hgb 9.0 L (11.4-16.0) gm/dL Hct 29.0 L (34.0-46.0) % POC Glucose (mg/dL) 202 H (75-99) mg/dL Assessment and Plan Assessment: Status post left hip hemiarthroplasty Plan: Pain control, resume medications she takes chronically GI and DVT prophylaxis, heparin 5000 units subq q12hrs Daily dressing changes Encourage incentive spirometer Other medical specialists recommendations Anticipate discharge back to [facility] today Time with Patient: Less than 30
--- NOTE | 2019-10-30 09:55 | P.DS ---
Providers Date of admission: 10/26/19 23:49 Expected date of discharge: 10/30/19 Attending physician: Hao Bird Consults: 10/26/19 23:50 Consult Physician Routine Consulting Provider: Tawana Mata Consult Reason/Comments: Pulmonary clearance for surgery Do you want consulting provider notified?: Yes, Notify in am 10/27/19 06:08 Consult Physician Routine Consulting Provider: Jeyson Garrett Consult Reason/Comments: medical management Do you want consulting provider notified?: Yes Placement Type Exists?: Yes Primary care physician: [facility] Course: Date of admission: 10/26/2019 Date of discharge: 10/30/2019 Admission diagnosis: Displaced left femoral neck fracture Discharge diagnosis: Status post left hip hemiarthroplasty Attending physician: Dr. Bird Surgical procedures: Left hip hemiarthroplasty Brief history: Patient is a 79-year-old female who presented to [facility] on 10/26/2019 after injuring her left hip. Images demonstrated a displaced left femoral neck fracture, she was admitted under our orthopedic care with plan for surgical intervention. She underwent surgery on 10/28/2019. Hospital course: Details of patient's surgery can be found in operative report. Patient tolerated the procedure well and was subsequently transported to orthopedic floor. Patient's orthopeidc and medical care was provided daily. Patient had daily laboratory tests performed for evaluation of overall blood counts. Patient had daily physical therapy to include strengthening range of motion as well as education with walker ambulation. Patient was treated with heparin for their postoperative DVT prophylaxis during their inpatient stay. Patient was noted to have a relatively uneventful postoperative course. Patient reported satisfactory pain control with oral pain medications by postoperative day 0. Patient showed satisfactory progress with physical therapy. Patient moved steadily through the program and had no difficulty meeting the goals by postoperative day 2. Given patient's otherwise satisfactory course and having met physical therapy goals, plan is to discharge patient rehab on postoperative day 2. Discharge condition/disposition: Patient will be discharged rehab in stable condition. Discharge medications: Instructions are given on resumption of patient's normal daily medications per primary care recommendation, in addition patient will be prescribed heparin 5000 units. Discharge instructions: 1. Wound care and infection precautions, keep incision dry and covered while showering, no lotions, creams, moisturizers. No soaking, tubs, pools, hottubs. Do not scrub over the incision. 2. Weight-bear as tolerated with walker / cane until follow-up. 3. Ice and elevate when necessary. Do not exceed 20 minutes per hour with ice pack. 4. Utilize compression sleeve until seen at first follow up appointment. 5. Visiting nursing care. 6. Home physical therapy. 7. Pain meds and anticoagulants per prescription. 8. Pain medication has potential to cause constipation. Increase oral fluid and fiber intake. Contact primary care provider if you have not had a bowel movement within 48 hours after discharge 9. No anti-inflammatory medication until discussed at first post operative visit, this including Motrin, Aleve, Mobic, Diclofenac. 10. Follow up in office at 2 weeks postop with Colin Alicia PA-C 11. Follow up with your primary care doctor 7-10 days after discharge. 12. Contact [facility] with any questions, . Procedures: Left hip hemiarthroplasty Patient Condition at Discharge: Fair Plan - Discharge Summary New Discharge Prescriptions: New Morphine Sulfate ER [Ms Contin] 15 mg PO DAILY PRN #28 tablet PRN Reason: Pain HYDROcodone/APAP 5-325MG [[place] 5-325] 1 each PO Q4HR PRN #28 tab PRN Reason: Pain Heparin Sodium,Porcine [Heparin Sodium] 5,000 unit SQ Q12HR #30 vial Continue ALPRAZolam [Xanax] 0.25 mg PO HS #30 tablet Discontinued Morphine Sulfate [Ms Contin] 15 mg PO DAILY #30 tablet.er HYDROcodone/APAP 5-325MG [[place] 5-325] 1 tab PO Q6H PRN PRN Reason: Pain HYDROcodone/APAP 5-325MG [[place] 5-325] 1 tab PO Q8HR No Action Montelukast [Singulair] 10 mg PO HS@2100 Cholecalciferol [Vitamin D3 (25 Mcg = 1000 Iu)] 4,000 unit PO DAILY@1700 Nitroglycerin Sl Tabs [Nitrostat] 0.4 mg SUBLINGUAL Q5M PRN #0 tab PRN Reason: Chest Pain Furosemide [Lasix] 20 mg PO Q48H Spironolactone [Aldactone] 12.5 mg PO Q48H Artificial Tears-Hypromellose [Artificial Tear Drops] 1 drops BOTH EYES QID PRN #0 bottle PRN Reason: Dry Eye(S) Metoprolol Tartrate [Lopressor] 12.5 mg PO BID tab Ondansetron [Zofran] 4 mg PO Q8HR PRN PRN Reason: Nausea Levalbuterol Nebulized [Xopenex Nebulized] 1.25 mg INHALATION RT-DAILY PRN PRN Reason: Shortness Of Breath Magnesium Hydroxide [Milk of Magnesia] 2,400 mg PO DAILY PRN PRN Reason: Constipation Mag Hydrox/Al Hydrox/Simeth [Maalox] 15 ml PO Q6H PRN PRN Reason: GI DISTRESS Loperamide [Imodium] 2 mg PO DAILY PRN PRN Reason: Loose Stool Na Phos,M-B/Na Phos,Di-Ba [Fleet Adult] 133 ml RECTAL DAILY PRN PRN Reason: Constipation Bisacodyl [Dulcolax] 10 mg RECTAL DAILY@0600 PRN PRN Reason: Constipation Menthol [Biofreeze] 1 applic TOPICAL Q8H PRN PRN Reason: JOINT PAIN Albuterol Nebulized [Ventolin Nebulized] 2.5 mg INHALATION RT-Q4H PRN PRN Reason: Shortness Of Breath Acetaminophen [Tylenol] 325 - 650 mg PO Q4H PRN PRN Reason: Pain Levalbuterol Nebulized [Xopenex Nebulized] 1.25 mg INHALATION RT-TID guaiFENesin [Mucinex] 1,200 mg PO BID@0800,2100 Fluticasone/Salmeterol [Advair 500-50 Diskus] 1 puff INHALATION BID@0800,1700 traZODone HCL [Desyrel] 125 mg PO HS@2100 predniSONE 5 mg PO HS@2100 Famotidine [Pepcid] 20 mg PO DAILY@0800 Omeprazole 20 mg PO DAILY@0600 Polyethylene Glycol 3350 [Miralax] 17 gm PO HS@2100 Melatonin 1 mg PO HS@2100 Atorvastatin [Lipitor] 10 mg PO HS@2100 Aspirin EC [Ecotrin Low Dose] 81 mg PO DAILY@0800 Zofran Injection 4 mg IV Q8H PRN PRN Reason: Nausea Discharge Medication List Cholecalciferol [Vitamin D3 (25 Mcg = 1000 Iu)] 4,000 unit PO DAILY@1700 10/12/14 [History] Montelukast [Singulair] 10 mg PO HS@2100 05/02/15 [History] Nitroglycerin Sl Tabs [Nitrostat] 0.4 mg SUBLINGUAL Q5M PRN #0 tab 11/02/14 [Rx] Furosemide [Lasix] 20 mg PO Q48H 06/07/15 [History] Spironolactone [Aldactone] 12.5 mg PO Q48H 07/04/15 [History] Artificial Tears-Hypromellose [Artificial Tear Drops] 1 drops BOTH EYES QID PRN #0 bottle 07/10/15 [Rx] Metoprolol Tartrate [Lopressor] 12.5 mg PO BID tab 07/10/15 [Rx] Acetaminophen [Tylenol] 325 - 650 mg PO Q4H PRN 10/27/19 [History] Albuterol Nebulized [Ventolin Nebulized] 2.5 mg INHALATION RT-Q4H PRN 10/27/19 [History] Aspirin EC [Ecotrin Low Dose] 81 mg PO DAILY@0800 10/27/19 [History] Atorvastatin [Lipitor] 10 mg PO HS@209910/27/19 [History] Bisacodyl [Dulcolax] 10 mg RECTAL DAILY@0600 PRN 10/27/19 [History] Famotidine [Pepcid] 20 mg PO DAILY@0800 10/27/19 [History] Fluticasone/Salmeterol [Advair 500-50 Diskus] 1 puff INHALATION BID@0800,1700 10/27/19 [History] Levalbuterol Nebulized [Xopenex Nebulized] 1.25 mg INHALATION RT-DAILY PRN 10/27/19 [History] Levalbuterol Nebulized [Xopenex Nebulized] 1.25 mg INHALATION RT-TID 10/27/19 [History] Loperamide [Imodium] 2 mg PO DAILY PRN 10/27/19 [History] Mag Hydrox/Al Hydrox/Simeth [Maalox] 15 ml PO Q6H PRN 10/27/19 [History] Magnesium Hydroxide [Milk of Magnesia] 2,400 mg PO DAILY PRN 10/27/19 [History] Melatonin 1 mg PO HS@209910/27/19 [History] Menthol [Biofreeze] 1 applic TOPICAL Q8H PRN 10/27/19 [History] Na Phos,M-B/Na Phos,Di-Ba [Fleet Adult] 133 ml RECTAL DAILY PRN 10/27/19 [History] Omeprazole 20 mg PO DAILY@0600 10/27/19 [History] Ondansetron [Zofran] 4 mg PO Q8HR PRN 10/27/19 [History] Polyethylene Glycol 3350 [Miralax] 17 gm PO HS@209910/27/19 [History] Zofran Injection 4 mg IV Q8H PRN 10/27/19 [History] guaiFENesin [Mucinex] 1,200 mg PO BID@0800,209910/27/19 [History] predniSONE 5 mg PO HS@209910/27/19 [History] traZODone HCL [Desyrel] 125 mg PO HS@209910/27/19 [History] ALPRAZolam [Xanax] 0.25 mg PO HS #30 tablet 10/30/19 [Rx] HYDROcodone/APAP 5-325MG [[place] 5-325] 1 each PO Q4HR PRN #28 tab 10/30/19 [Rx] Heparin Sodium,Porcine [Heparin Sodium] 5,000 unit SQ Q12HR #30 vial 10/30/19 [Rx] Morphine Sulfate ER [Ms Contin] 15 mg PO DAILY PRN #28 tablet 10/30/19 [Rx] Follow up Appointment(s)/Referral(s): Micha Salas DO [Primary Care Provider] - 1-2 days Craig Alicia PAC [PHYSICIAN DISC RECORDIST] - 2 Weeks Ambulatory/Diagnostic Orders: Miscellaneous Radiology Order [RAD.AMB] Location: None Selected Activity/Diet/Wound Care/Special Instructions: Orthopedic Discharge Instructions: 1. Wound care and infection precautions, keep incision dry and covered while showering, no lotions, creams, moisturizers. No soaking, pools, hot tubs. Do not scrub over incision. 2. Weight-bear as tolerated with walker / cane until follow-up. 3. Ice and elevate when necessary. Do not exceed 20 minutes per hour with ice pack. 4. Utilize compression sleeve until seen at first follow up appointment. 5. Pain meds and anticoagulants per prescription. 6. Pain medication has potential to cause constipation. Increase oral fluid and fiber intake. Contact primary care provider if you have not had a bowel movement within 48 hours after discharge. 7. No anti-inflammatory medication until discussed at first post operative visit, this including Motrin, Aleve, Mobic, Diclofenac. 8. Follow up in office at 2 weeks postop with Colin Alicia PA-C 9. Follow up with your primary care doctor 7-10 days after discharge. 10. Contact [facility] with any questions, . Discharge Disposition: TRANSFER TO SNF/ECF
[2019-10-30 11:55] LABS: Glucose,Whole Blood 128 mg/dL (75-99)
--- NOTE | 2019-10-30 13:26 | P.PN ---
Subjective Progress Note Date: 10/30/19 Principal diagnosis: Left hip fracture, status post surgical repair 79-year-old female patient with advanced COPD with chronic hypoxic respiratory failure and based on FEV1 of 41% of predicted and chronic steroid use at a dose of 5 mg of prednisone daily basis. She also has history of rheumatoid arthritis maintained on 5 mg of prednisone, coronary artery disease, COPD and hyp ertension. Previous cardiac catheterization and stenting of the RCA and LAD has been done on this patient. The patient came into the [facility] [place] [facility] She fell out of her wheelchair and she sustained a fracture to her left hip. She came into the emergency department having difficulties with pain and mobility. The x-ray of the left hip showed an acute subcapital fracture of the left femur. Coagulation profile is within normal. Renal function shows a BUN of 33 with a creatinine of 1.26. This patient has normal liver function tests and the rest of the blood work is within normal. [facility] a [facility]. She is residing at [facility]. The patient has limited exercise capacity she gets short of breath with minimal amount of activity due to her advanced COPD. She has been on Advair as maintenance and she does albuterol ipratropium nebulized treatment on an as needed basis. She has difficulty with mobility and gait. No joint deformities other than her chronic deformities related to rheumatoid arthritis. She has not had any previous falls. The patient has no cough and congestion has been much subsided. No swelling lower extremities. No fever or chills. No thrush. She is edentulous. No aspiration. She is unable to perform activities of daily today life independently and she needs help. Her last pneumonia shot was around 3 y ears ago. Good appetite. No altered mentation. The patient is seen today 10/28/2019 in follow-up on the selective care unit. She is awake and alert. She is currently resting in bed. More comfortable today compared to yesterday. Pain is better controlled. She is maintaining good O2 saturations in the 90s on 2 L/m per nasal cannula. She's afebrile. Hemodynamically stable. Plan is for surgical repair of the left hip fracture today. On 10/29/2019 patient seen in follow-up on selective care unit, she is calm and comfortable, her pain is better controlled on today's exam, she seems a lot more comfortable compared to yesterday, she denies any difficulty breathing, lung sounds are clear to auscultation today's exam, she is on 2 L of oxygen pulse ox of 96%, no fever or chills, hemodynamically stable. She denies any chest pain or shortness of breath. He is working on incentive spirometer. Her chest x-ray on admission showed minimal left lung base atelectasis or scarring. His labs h ave been reviewed showing white blood cell count of 9.5, hemoglobin of 9.3. No acute events overnight. She is on maintenance dose of Pulmicort, Perforomist, and when necessary albuterol inhaler. Doing well. Today is postoperative day 1 status post left hip hemiarthroplasty On 10/30/2019 patient seen in follow-up on selective care unit, she is awake and alert, oriented 3, she sitting up in the recliner today, no worsening dyspnea, she is on 2 L of oxygen pulse ox is 98%, she is afebrile, hemodynamically she stable, she has no specific complaints, no worsening dyspnea, lung sounds are clear diminished at the bases, she is getting her breathing treatments. Today's labs have been reviewed, CBC was done only, showing white blood cell, of 9.1, hemoglobin is 9.0, her pain is fairly well-controlled, this is postoperative day 2 status post left hip hemiarthroplasty Objective - Vital Signs Vital signs: Vital Signs Temp 98.2 F 10/30/19 08:15 Pulse 76 10/30/19 12:16 Resp 16 10/30/19 08:16 BP 135/66 10/30/19 08:15 Pulse Ox 98 10/30/19 08:15 Intake & Output 10/29/19 10/30/19 10/30/19 18:59 06:59 18:59 Intake Total 1036 90 Output Total 500 510 600 Balance 536 -510 -510 Weight 80.1 kg Intake: Intake, IV Titration 560 Amount IV Fluid Continuation 600 560 ml @ 0 mls/hr IV .STK- [facility] Rx#:[id number] Oral 476 90 Output: Urine 500 510 600 Uretheral ([place]bar[place]) 600 Other: Voiding Method Indwelling Catheter Indwelling Catheter Indwelling Catheter # Voids 1 - Exam GENERAL EXAM: Alert, very pleasant, 79-year-old white female on 2 L of oxygen and the pulse ox of 98% comfortable in no apparent distress. HEAD: Normocephalic/atraumatic. EYES: Normal reaction of pupils, equal size. Conjunctiva pink, sclera white. NOSE: Clear with pink turbinates. THROAT: No erythema or exudates. NECK: No masses, no JVD, no thyroid enlargement, no adenopathy. CHEST: No chest wall deformity. Symmetrical expansion. LUNGS: Equal air entry with no crackles, wheeze, rhonchi or dullness. CVS: Regular rate and rhythm, normal S1 and S2, no gallops, no murmurs, no rubs ABDOMEN: Soft, nontender. No hepatosplenomegaly, normal bowel sounds, no guarding or rigidity. EXTREMITIES: No clubbing, no edema, no cyanosis, 2+ pulses and upper and lower extremities. Left hip incision clean dry and intact MUSCULOSKELETAL: Muscle strength and tone normal. SPINE: No scoliosis or deformity SKIN: No rashes CENTRAL NERVOUS SYSTEM: Alert and oriented -3. No focal deficits, tone is normal in all 4 extremities. PSYCHIATRIC: Alert and oriented -3. Appropriate affect. Intact judgment and insight. - Labs CBC & Chem 7: 10/30/19 05:46 10/26/19 23:25 Labs: Abnormal Lab Results - Last 24 Hours (Table) 10/29/19 10/29/19 10/30/19 Range/Units 17:02 20:43 05:46 RBC 3.09 L (3.80-5.40) m/uL Hgb 9.0 L (11.4-16.0) gm/dL Hct 29.0 L (34.0-46.0) % POC Glucose (mg/dL) 195 H 218 H (75-99) mg/dL 10/30/19 10/30/19 Range/Units 06:20 11:39 RBC (3.80-5.40) m/uL Hgb (11.4-16.0) gm/dL Hct (34.0-46.0) % POC Glucose (mg/dL) 202 H 128 H (75-99) mg/dL Assessment and Plan Plan: Assessment: 1 left hip subcapital fracture of the femur, fall related, status post left hemiarthroplasty, postop day 2 2 left hip pain secondary to above 3 severe chronic obstructive pulmonary disease, she has severe COPD. Her FEV1 is noted of 41% of predicted. Continue the Advair. Continue the albuterol nebulized treatments every times a day. She is on prednisone 5 mg by mouth on a daily basis. Her lungs are diminished yet no signs of any pneumonia or fluid at this point in time.the patient is been stable for now and there are no active re spiratory issues. She was still moving around with the help of a chair. Nevertheless, despite her limitations, she is doing well and she had an acceptable quality of life till at this point in time when she fell 4 coronary arteriosclerosis, inactive in stable and previous stenting of RCA and LAD 5 rheumatoid arthritis, on low-dose prednisone at 5 mg. No active joint swelling. 6 osteoarthritis Difficulty and mobility and the patient is moving around with the help of a wheelchair. patient is still on a combination of morphine and [place] for pain control. 7 hyperlipidemia, on Lipitor for hyperlipidemia. 8 anxiety disorder 9 scoliosis of thoracic spine 10 dementia Plan: Patient is doing well, stable, no worsening dyspnea, continue encouraging deep breathing and coughing, continue with nebulized bronchodilators, lung sounds are clear. Breathing is comfortable, a pulmonary perspective she can be considered for discharge back to [facility] and rehab once cleared by orthopedic surgery I performed a history & physical examination of the patient and discussed their management with my nurse practitioner, Maida Booth. I reviewed the nurse practitioner's note and agree with the documented findings and plan of care. Lung sounds are positive for clear breath sounds. The findings and the impression was discussed with the patient. I attest to the documentation by the nurse practitioner. Time with Patient: Less than 30
--- NOTE | 2019-10-30 14:20 | CDI ---
the patient sustained acute blood loss anemia from her fracture/surgery. This is not a complication but an expected outcome. Documentation Clarification Form Date: 10/30/2019 02:00:36 PM From: Kirstie Mishra RN CCDS Admit Date: 10/26/2019 11:49:00 PM Patient Name: Lexie Solis Visit Number: [id number] Discharge Date: ATTENTION: The Clinical Documentation Specialists (CDI) and [facility] Coding Staff appreciate your assistance in clarifying documentation. Please respond to the clarification below the line at the bottom and electronically sign. The CDI & [facility] Coding staff will review the response and follow-up if needed. Please note: Queries are made part of the Legal Health Record. If you have any questions, please contact the author of this message via ITS. Dr. Hao Bird Acute blood loss anemia, post procedure I suspect from surgery Is documented by Internal Medicine Progress note 10/28 Patients Admitting Diagnosis: Displaced left subcapital femoral neck fracture. Post-Operative Diagnosis: Same Procedure performed 10/27: Left hip hemiarthroplasty press fit History/Risk Factors: 79-year-old female presents to the ED [facility] after a fall from wheelchair having left hip pain. Medical history COPD, HTN and iron deficiency anemia Clinical Indicators: ESBL Sx 10/27: 100mL Labs: 10/25 Hgb 12.5, Hct 39.3; 10/28 Hgb 9.3, Hct 30.8; 10/29 Hgb 9.0, Hct 29.0 Treatment: Monitoring of Hgb and Hct In order to accurately reflect this patients severity of illness, please clarify if the Acute Blood Loss Anemia: -has been ruled out -is a complication of surgical procedure -is an expected outcome of the surgical procedure -is related to co-morbid condition(s) -Other please specify -Unable to determine (Last Revision: July 2019) MTDD
--- NOTE | 2019-10-30 20:32 | P.PN ---
Progress Note - Text Progress Note Date: 10/30/19 - Chief Complaint Left hip pain Consultation: This is a 79-year-old patient who follows a Dr. Salas at the [facility]. Chronic stable medical conditions include coronary artery. The stent, COPD, GERD, hypertension, rheumatoid arthritis, chronic hydronephrosis of the left kidney, chronic diverticulosis hyperlipidemia rheumatoid arthritis. Normally uses a wheelchair. Patient fell on the left hip fracturing fracturing the same. Significant pain of the fracture site. No change in the breathing pattern. This was a mechanical fall. No dizziness no lightheadedness. Does not complaint of any chest pain. Patient about the most detailed historian. No fever no chills. Appetite is fair.left hip hemiarthroplasty-on October 27 Today-Sitting upon a chair. Pain better controlled. Started to eat.. Review of systems: Was done for constitutional, cardiovascular, GI, pulmonary. Musculoskeletal, relevant finding as above Current medications reviewed in today's electronic record Physical examination: VITAL SIGNS: 98.2, 68, 16, 135-66, 98% on 2 L GENERAL: Laying in bed, awake EYES: Pupils equal. Conjunctiva normal. HEENT: External appearance of nose and ears normal, oral cavity grossly normal. NECK: JVD not raised; masses not palpable. HEART: First and second heart sounds are normal; no edema. LUNGS: Respiratory rate normal; clear to auscultation. ABDOMEN: Soft, nontender, liver spleen not palpable, no masses palpable. PSYCH: Answering simple questions. MUSCULOSKELETAL: Limited range of motion left hip. Evidence of OA in the joints INVESTIGATIONS, reviewed in the clinical context: Hemoglobin 9 Previous testing White count 11.6 hemoglobin 12.5 platelets 271 potassium 5 bun 33 creatinine 1.26 Patient's creatinine in June of this year was 1.35 UA positive for leukoesterase, small COVID-19 PCR-not detected Left hip fracture showing acute impacted subcapital fracture of the left femur EKG tracing personally reviewed by me shows normal sinus rhythm Chest x-ray film personally reviewed by me shows-lung castillo to be clear Assessment: -Acute left femur impacted subcapital fracture secondary to mechanical fall- status post left hip hemiarthroplasty today -Coronary artery disease with stent -Obesity BMI 31.4 -COPD -GERD -Essential hypertension -Rheumatoid arthritis -Chronically hydronephrotic left kidney -Colonic diverticulosis -Hyperlipidemia -Chronic kidney disease stage III -Acute blood loss anemia, postprocedure as expected from surgery -Hyperglycemia from steroids, no diabetes Plan: Stable. Improving. Discussed with the patient. Follow up with PCP upon discharge. Thank you Dr. Weiss
== END 2019-10-30 14:45 | DRG 470 ==
LOC: EC 21:59 → 3SCARD 23:49
PROVIDERS: ADMIT Orthopaedic Surgery; ATTEND Orthopaedic Surgery
PROC: 0SRS0JA Replacement of Left Hip Joint, Femoral Surface with Synthetic Substitute, Uncemented, Open Approach (ICD-10-PCS; principal; 2019-10-28 12:00)
DX: S72.012A Unspecified intracapsular fracture of left femur, initial encounter for closed fracture (principal); N13.30 Unspecified hydronephrosis; D62 Acute posthemorrhagic anemia; J96.11 Chronic respiratory failure with hypoxia; Z11.59 Encounter for screening for other viral diseases; M06.9 Rheumatoid arthritis, unspecified; M41.34 Thoracogenic scoliosis, thoracic region; E66.9 Obesity, unspecified; D63.1 Anemia in chronic kidney disease; Z68.31 Body mass index [BMI] 31.0-31.9, adult; J84.10 Pulmonary fibrosis, unspecified; N18.3 Chronic kidney disease, stage 3 (moderate); F03.90 Unspecified dementia, unspecified severity, without behavioral disturbance, psychotic disturbance, mood disturbance, and anxiety; J44.9 Chronic obstructive pulmonary disease, unspecified; K21.9 Gastro-esophageal reflux disease without esophagitis; I25.10 Atherosclerotic heart disease of native coronary artery without angina pectoris; I12.9 Hypertensive chronic kidney disease with stage 1 through stage 4 chronic kidney disease, or unspecified chronic kidney disease; K57.30 Diverticulosis of large intestine without perforation or abscess without bleeding; E78.5 Hyperlipidemia, unspecified; F41.9 Anxiety disorder, unspecified; F32.9 Major depressive disorder, single episode, unspecified; W05.0XXA Fall from non-moving wheelchair, initial encounter; M19.90 Unspecified osteoarthritis, unspecified site; R26.9 Unspecified abnormalities of gait and mobility; T38.0X5A Adverse effect of glucocorticoids and synthetic analogues, initial encounter; R73.9 Hyperglycemia, unspecified; Y92.129 Unspecified place in nursing home as the place of occurrence of the external cause; I25.2 Old myocardial infarction; Z79.899 Other long term (current) drug therapy; Z79.02 Long term (current) use of antithrombotics/antiplatelets; Z79.82 Long term (current) use of aspirin; Z79.52 Long term (current) use of systemic steroids; Z91.048 Other nonmedicinal substance allergy status; Z95.5 Presence of coronary angioplasty implant and graft; Z90.49 Acquired absence of other specified parts of digestive tract; Z87.81 Personal history of (healed) traumatic fracture; Z98.890 Other specified postprocedural states; Z88.5 Allergy status to narcotic agent; Z88.2 Allergy status to sulfonamides; Z88.8 Allergy status to other drugs, medicaments and biological substances; Z82.49 Family history of ischemic heart disease and other diseases of the circulatory system; Z82.0 Family history of epilepsy and other diseases of the nervous system
CPT/HCPCS: 36415; 71045; 73501; 73502; 80053; 81001; 82550; 83735; 84484; 85025; 85027; 85610; 85730; 86850; 86900; 86901; 87635; 88305; 88311; 93005; 94640; 96374; 96375; 99285

== ENCOUNTER 2019-11-05 20:01 | Inpatient (IN) | payer MEDICARE, OTHER ==
[2019-11-05] MEDS ORDERED: ACETAMINOPHEN TAB 500 MG TAB PO STA (20:21)
[2019-11-05] MEDS ORDERED: FAMOTIDINE 20 MG/2 ML VIAL IV STA (20:21)
[2019-11-05] MEDS ORDERED: ONDANSETRON 4 MG/2 ML VIAL IVP STA (20:21)
--- NOTE | 2019-11-05 20:24 | ED ---
General Adult HPI - General Chief complaint: Fever Stated complaint: fever Time Seen by Provider: 11/05/19 20:17 Source: patient, EMS, RN notes reviewed Mode of arrival: EMS Limitations: no limitations - History of Present Illness Initial comments: Patient is a pleasant 79-year-old female presenting to the emergency Department with not feeling well. Patient states she is nauseated. Patient also complains of some discomfort of her left hip. Onset of symptoms was today. Patient did have left hip surgery done by Dr. Weiss approximately a week ago. Patient reportedly has fever. Patient feels nauseated and has vomited once. Patient also has spit up a little bit. patient diarrhea. No abdominal pain. - Related Data Home Medications Medication Instructions Recorded Confirmed Cholecalciferol [Vitamin D3 (25 4,000 unit PO DAILY@1700 10/12/14 10/27/19 Mcg = 1000 Iu)] Montelukast [Singulair] 10 mg PO HS@2100 10/12/14 10/27/19 Spironolactone [Aldactone] 12.5 mg PO Q48H 07/04/15 10/27/19 Albuterol Nebulized [Ventolin 2.5 mg INHALATION RT-Q4H PRN 10/27/19 10/27/19 Nebulized] Aspirin EC [Ecotrin Low Dose] 81 mg PO DAILY@0800 10/27/19 10/27/19 Bisacodyl [Dulcolax] 10 mg RECTAL DAILY@0600 PRN 10/27/19 10/27/19 Famotidine [Pepcid] 20 mg PO DAILY@0800 10/27/19 10/27/19 Fluticasone/Salmeterol [Advair 1 puff INHALATION BID@0800,1700 10/27/19 10/27/19 500-50 Diskus] Levalbuterol Nebulized [Xopenex 1.25 mg INHALATION RT-DAILY PRN 10/27/19 10/27/19 Nebulized] Levalbuterol Nebulized [Xopenex 1.25 mg INHALATION RT-TID 10/27/19 10/27/19 Nebulized] Mag Hydrox/Al Hydrox/Simeth 15 ml PO Q6H PRN 10/27/19 10/27/19 [Maalox] Magnesium Hydroxide [Milk of 2,400 mg PO DAILY PRN 10/27/19 10/27/19 Magnesia] Melatonin 1 mg PO HS@209910/27/19 10/27/19 Menthol [Biofreeze] 1 applic TOPICAL Q8H PRN 10/27/19 10/27/19 Na Phos,M-B/Na Phos,Di-Ba [Fleet 133 ml RECTAL DAILY PRN 10/27/19 10/27/19 Adult] Omeprazole 20 mg PO DAILY@0600 10/27/19 10/27/19 Ondansetron [Zofran] 4 mg PO Q8HR PRN 10/27/19 10/27/19 Polyethylene Glycol 3350 [Miralax] 17 gm PO HS@209910/27/19 10/27/19 guaiFENesin [Mucinex] 1,200 mg PO BID@0800,209910/27/19 10/27/19 predniSONE 5 mg PO HS@209910/27/19 10/27/19 traZODone HCL [Desyrel] 125 mg PO HS@209910/27/19 10/27/19 Previous Rx's Medication Instructions Recorded Nitroglycerin Sl Tabs [Nitrostat] 0.4 mg SUBLINGUAL Q5M PRN #0 tab 11/02/14 Artificial Tears-Hypromellose 1 drops BOTH EYES QID PRN #0 bottle 07/10/15 [Artificial Tear Drops] Metoprolol Tartrate [Lopressor] 12.5 mg PO BID tab 07/10/15 ALPRAZolam [Xanax] 0.25 mg PO HS #30 tablet 10/30/19 Atorvastatin [Lipitor] 40 mg PO AC-SUPPER tab 10/30/19 Furosemide [Lasix] 10 mg PO QAM tab 10/30/19 HYDROcodone/APAP 5-325MG [[place] 1 each PO Q4HR PRN #28 tab 10/30/19 5-325] Heparin Sodium,Porcine [Heparin 5,000 unit SQ Q12HR #30 vial 10/30/19 Sodium] Lisinopril [Zestril] 1.25 mg PO QAM tab 10/30/19 Morphine Sulfate ER [Ms Contin] 15 mg PO DAILY PRN #28 tablet 10/30/19 Allergies Allergy/AdvReac Type Severity Reaction Status Date / Time codeine Allergy Severe Anaphylaxis Verified 10/27/19 12:52 Echinacea Allergy Severe Anaphylaxis Verified 10/27/19 12:52 Sulfa (Sulfonamide Allergy Severe Anaphylaxis Verified 10/27/19 12:52 Antibiotics) alcohol AdvReac Unknown Unknown Verified 10/27/19 12:52 nitroglycerin AdvReac Unknown Unknown Verified 10/27/19 12:52 [From Nitrostat] Review of Systems ROS Statement: Those systems with pertinent positive or pertinent negative responses have been documented in the HPI. ROS Other: All systems not noted in ROS Statement are negative. Constitutional: Reports: fever, chills Eyes: Denies: eye pain ENT: Denies: ear pain Respiratory: Denies: cough, dyspnea Cardiovascular: Denies: chest pain Endocrine: Reports: fatigue Gastrointestinal: Reports: nausea. 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, chronic diverticulosis fe deficiency anemia , COPD, hyperlipidemia, rheumatoid arthritis, Last Myocardial Infarction Date:: 10/13/2014 History of Any Multi-Drug Resistant Organisms: None Reported Past Surgical History: Appendectomy, Bowel Resection, Cholecystectomy, Heart Catheterization, Heart Catheterization With Stent Additional Past Surgical History / Comment(s): bowel sx (adhesions), right foot, LEFT SHOULDER FX Past Anesthesia/Blood Transfusion Reactions: No Reported Reaction Date of Last Stent Placement:: 10/13/2014 Past Psychological History: Anxiety, Depression Smoking Status: Never smoker Past Alcohol Use History: None Reported Past Drug Use History: None Reported - Past Family History Father Family Medical History: Coronary Artery Disease (CAD) Additional Family Medical History / Comment(s): parkinsons, cabg x 4 vessels Mother Additional Family Medical History / Comment(s): at 54 from a coronary thrombosis General Exam Limitations: no limitations General appearance: alert, in no apparent distress Head exam: Present: normocephalic Eye exam: Present: normal appearance Neck exam: Present: normal inspection Respiratory exam: Present: normal lung sounds bilaterally Cardiovascular Exam: Present: regular rate, normal rhythm Expanded Peripheral pulses: 2+: Posterior Tibialis (L), Dorsalis Pedis (L) GI/Abdominal exam: Present: soft. Absent: tenderness Extremities exam: Present: other (Left hip incision is clean and dry and intact. No significant tenderness. Disposition is neurovascular intact. Pedal pulses intact.) Neurological exam: Present: alert. Absent: motor sensory deficit Psychiatric exam: Present: normal affect, normal mood Skin exam: Absent: rash, erythema Course Vital Signs 11/05/19 11/05/19 20:04 22:07 Temperature 100.4 F H Pulse Rate 83 100 Respiratory 18 18 Rate Blood Pressure 102/45 97/47 O2 Sat by Pulse 92 L 93 L Oximetry EKG Findings - EKG Comments: EKG Findings:: Normal sinus rhythm 90. SC 136. QRS 86. QT 342. QTC 418. Left axis. Normal QRS. No acute ST change. Medical Decision Making - Medical Decision Making Patient does meet sepsis criteria diagnosed at 11 PM. Blood culture and lactic acid have been ordered. IV antibiotics will be ordered. Patient reevaluated and updated. Case discussed with practitioner Afua, covering for Dr. Gasca, who is covering for Dr. Garrett, who admits for Dr. Salas and he will admit. Dr. Weiss will be consult. - Lab Data Result diagrams: 11/05/19 20:21 11/05/19 20:21 Lab Results 11/05/19 11/05/19 11/05/19 Range/Units 20:21 20:21 20:21 WBC 16.3 H (3.8-10.6) k/uL RBC 3.67 L (3.80-5.40) m/uL Hgb 10.4 L (11.4-16.0) gm/dL Hct 33.7 L (34.0-46.0) % MCV 91.9 (80.0-100.0) fL MCH 28.4 (25.0-35.0) pg MCHC 30.9 L (31.0-37.0) g/dL RDW 14.8 (11.5-15.5) % Plt Count 274 (150-450) k/uL Neutrophils % 85 % Lymphocytes % 6 % Monocytes % 7 % Eosinophils % 1 % Basophils % 0 % Neutrophils # 13.9 H (1.3-7.7) k/uL Lymphocytes # 1.0 (1.0-4.8) k/uL Monocytes # 1.1 H (0-1.0) k/uL Eosinophils # 0.1 (0-0.7) k/uL Basophils # 0.0 (0-0.2) k/uL Hypochromasia Slight PT 9.6 (9.0-12.0) sec INR 0.9 (<1.2) APTT 18.8 L (22.0-30.0) sec Sodium 138 (137-145) mmol/L Potassium 4.1 (3.5-5.1) mmol/L Chloride 107 (98-107) mmol/L Carbon Dioxide 25 (22-30) mmol/L Anion Gap 6 mmol/L BUN 33 H (7-17) mg/dL Creatinine 1.19 H (0.52-1.04) mg/dL Est GFR (CKD-EPI)AfAm 51 (>60 ml/min/1.73 sqM) Est GFR (CKD-EPI)NonAf 44 (>60 ml/min/1.73 sqM) Glucose 159 H (74-99) mg/dL Plasma Lactic Acid Wale (0.7-2.0) mmol/L Calcium 8.8 (8.4-10.2) mg/dL Total Bilirubin 0.8 (0.2-1.3) mg/dL AST 27 (14-36) U/L ALT 14 (4-34) U/L Alkaline Phosphatase 124 (38-126) U/L Total Protein 5.4 L (6.3-8.2) g/dL Albumin 2.9 L (3.5-5.0) g/dL Urine Color Urine Appearance (Clear) Urine pH (5.0-8.0) Ur Specific [place] (1.001-1.035) Urine Protein (Negative) Urine Glucose (UA) (Negative) Urine Ketones (Negative) Urine Blood (Negative) Urine Nitrite (Negative) Urine Bilirubin (Negative) Urine Urobilinogen (<2.0) mg/dL Ur Leukocyte Esterase (Negative) Urine RBC (0-5) /hpf Urine WBC (0-5) /hpf Ur Squamous Epith Cells (0-4) /hpf Urine Bacteria (None) /hpf Hyaline Casts (0-2) /lpf Urine Mucus (None) /hpf 11/05/19 11/05/19 Range/Units 20:21 21:22 WBC (3.8-10.6) k/uL RBC (3.80-5.40) m/uL Hgb (11.4-16.0) gm/dL Hct (34.0-46.0) % MCV (80.0-100.0) fL MCH (25.0-35.0) pg MCHC (31.0-37.0) g/dL RDW (11.5-15.5) % Plt Count (150-450) k/uL Neutrophils % % Lymphocytes % % Monocytes % % Eosinophils % % Basophils % % Neutrophils # (1.3-7.7) k/uL Lymphocytes # (1.0-4.8) k/uL Monocytes # (0-1.0) k/uL Eosinophils # (0-0.7) k/uL Basophils # (0-0.2) k/uL Hypochromasia PT (9.0-12.0) sec INR (<1.2) APTT (22.0-30.0) sec Sodium (137-145) mmol/L Potassium (3.5-5.1) mmol/L Chloride (98-107) mmol/L Carbon Dioxide (22-30) mmol/L Anion Gap mmol/L BUN (7-17) mg/dL Creatinine (0.52-1.04) mg/dL Est GFR (CKD-EPI)AfAm (>60 ml/min/1.73 sqM) Est GFR (CKD-EPI)NonAf (>60 ml/min/1.73 sqM) Glucose (74-99) mg/dL Plasma Lactic Acid Wale 1.1 (0.7-2.0) mmol/L Calcium (8.4-10.2) mg/dL Total Bilirubin (0.2-1.3) mg/dL AST (14-36) U/L ALT (4-34) U/L Alkaline Phosphatase (38-126) U/L Total Protein (6.3-8.2) g/dL Albumin (3.5-5.0) g/dL Urine Color Yellow Urine Appearance Clear (Clear) Urine pH 5.5 (5.0-8.0) Ur Specific [place] 1.016 (1.001-1.035) Urine Protein Negative (Negative) Urine Glucose (UA) Negative (Negative) Urine Ketones Negative (Negative) Urine Blood Negative (Negative) Urine Nitrite Positive H (Negative) Urine Bilirubin Negative (Negative) Urine Urobilinogen <2.0 (<2.0) mg/dL Ur Leukocyte Esterase Moderate H (Negative) Urine RBC 1 (0-5) /hpf Urine WBC 22 H (0-5) /hpf Ur Squamous Epith Cells <1 (0-4) /hpf Urine Bacteria Rare H (None) /hpf Hyaline Casts 1 (0-2) /lpf Urine Mucus Rare H (None) /hpf - Radiology Data Radiology results: image reviewed (Two-view chest x-ray shows atelectasis. Left hip and pelvis x-ray shows no fracture.) Critical Care Time Critical Care Time: Yes Total Critical Care Time: 33 Disposition Clinical Impression: UTI (urinary tract infection), Sepsis Disposition: ADMITTED IP TO THIS HOSP Is patient prescribed a controlled substance at d/c from ED?: No Referrals: Micha Salas DO [Primary Care Provider] - 1-2 days Decision Time: 23:07
[2019-11-05 20:38] LABS: Basophils % (A) 0 %; Eosinophils # (A) 0.1 k/uL (0-0.7); Eosinophils % (A) 1 %; HCT 33.7 % (34.0-46.0); HGB 10.4 gm/dL (11.4-16.0); Hypochromasia Slight; Lymphocytes % (A) 6 %; MCH 28.4 pg (25.0-35.0); MCHC 30.9 g/dL (31.0-37.0); MCV 91.9 fL (80.0-100.0); Mean Platelet Volume 7.3; Monocytes # (A) 1.1 k/uL (0-1.0); Monocytes % (A) 7 %; Neutrophils # (A) 13.9 k/uL (1.3-7.7); Neutrophils % (A) 85 %; Platelet Count 274 k/uL (150-450); RBC 3.67 m/uL (3.80-5.40); RDW 14.8 % (11.5-15.5); WBC 16.3 k/uL (3.8-10.6)
[2019-11-05 20:53] LABS: Albumin 2.9 g/dL (3.5-5.0); Calcium 8.8 mg/dL (8.4-10.2); Potassium 4.1 mmol/L (3.5-5.1); Total Bilirubin 0.8 mg/dL (0.2-1.3); Total Protein 5.4 g/dL (6.3-8.2)
[2019-11-05 21:02] LABS: INR 0.9 (<1.2); Prothrombin Time 9.6 sec (9.0-12.0)
[2019-11-05] MEDS: SODIUM CHLORIDE 0.9% 1,000 ML IV SCH (21:06)
[2019-11-05 21:13] LABS: Partial Thromboplastin Time 18.8 sec (22.0-30.0)
--- NOTE | 2019-11-05 21:50 | XR ---
EXAMINATION TYPE: XR chest 2V DATE OF EXAM: 11/05/2019 COMPARISON: 10/26/2019 HISTORY: Pain. Fever TECHNIQUE: FINDINGS: There is some mild linear density left lung base. The other lung castillo are clear. There is no heart failure. Heart size is normal. Thoracic aorta is atheromatous. Bony thorax is intact. IMPRESSION: Mild subsegmental atelectasis left lower lobe improved compared to last exam. Normal hear t.
--- NOTE | 2019-11-05 21:51 | XR ---
EXAMINATION TYPE: XR Hip LT and AP Pelvis DATE OF EXAM: 11/05/2019 COMPARISON: 10/28/2019 HISTORY: Left hip pain TECHNIQUE: 4 views FINDINGS: There is left hip prosthesis. Components are in anatomic position. Pelvic ring appears inta ct. Sacroiliac joints appear intact. IMPRESSION: No fracture seen. No change compared to recent exam.
[2019-11-05 22:06] LABS: Appearance,Urine Clear (Clear); Bacteria,Urine Rare /hpf; Bilirubin,Urine Negative (Negative); Blood,Urine Negative (Negative); Color,Urine Yellow; Glucose,Urine (UA) Negative (Negative); Hyaline Casts,Urine 1 /lpf (0-2); Ketones,Urine Negative (Negative); Leukocyte Esterase,Urine Moderate (Negative); Mucus,Urine Rare /hpf; Nitrite,Urine Positive (Negative); PH, Urine 5.5 (5.0-8.0); Protein,Urine Negative (Negative); RBC,Urine 1 /hpf (0-5); Specific Gravity,Urine 1.016 (1.001-1.035); Squamous Epithelial Cell,Urine <1 /hpf (0-4); Urobilinogen,Urine <2.0 mg/dL (<2.0); WBC,Urine 22 /hpf (0-5)
[2019-11-05] MEDS ORDERED: NALOXONE 0.4 MG/ML 1 ML VIAL IV PRN (23:08)
[2019-11-05] MEDS ORDERED: cefTRIAXone IN SWFI 1,000 MG/10 ML SYRINGE IVP STA (23:14)
[2019-11-06] MEDS ORDERED: SODIUM CHLORIDE 0.9% 500 ML 500 ML IV ONE (00:18)
[2019-11-06] MEDS: IBUPROFEN 400 MG TAB PO PRN ×2 (04:38→10:02)
[2019-11-06] MEDS: SODIUM CHLORIDE 0.9% 1,000 ML IV SCH ×3 (04:39→15:00)
[2019-11-06 06:10] LABS: Basophils % (A) 0 %; Eosinophils # (A) 0.2 k/uL (0-0.7); Eosinophils % (A) 1 %; HCT 30.1 % (34.0-46.0); HGB 9.5 gm/dL (11.4-16.0); Hypochromasia Moderate; Lymphocytes # (A) 0.9 k/uL (1.0-4.8); Lymphocytes % (A) 5 %; MCH 29.4 pg (25.0-35.0); MCHC 31.5 g/dL (31.0-37.0); MCV 93.2 fL (80.0-100.0); Mean Platelet Volume 7.1; Monocytes # (A) 0.9 k/uL (0-1.0); Monocytes % (A) 5 %; Neutrophils % (A) 88 %; Platelet Count 267 k/uL (150-450); RBC 3.22 m/uL (3.80-5.40); RDW 14.7 % (11.5-15.5); WBC 19.2 k/uL (3.8-10.6)
[2019-11-06 06:24] LABS: Albumin 2.4 g/dL (3.5-5.0); Calcium 8.1 mg/dL (8.4-10.2); Potassium 4.2 mmol/L (3.5-5.1); Total Bilirubin 0.7 mg/dL (0.2-1.3); Total Protein 4.8 g/dL (6.3-8.2)
--- NOTE | 2019-11-06 12:28 | P.CNOR ---
History of Present Illness - [facility] Consult date: 11/06/19 Consult reason: other (Recent left hip hemiarthroplasty) History of present illness: Patient is a 79-year-old female who presented to [facility] on 11/04/2021 to weakness and fatigue. After lab test were done, as determined she had a very significant UTI with sepsis. Patient was started on IV antibiotics and planned to be admitted to the hospital and internal medicine for further treatment. Patient has a history of a recent left hip hemiarthroplasty for a left femoral neck fracture. She injured her hip on 10/26/2019 and underwent surgery by Dr. Bird on 10/28/2019. She lives in [facility], she does not ambulate. Her hip has been feeling okay at this point, occasional soreness. She's noticed no worsening pain in the last week or so. She denies any recent trauma. Patient was evaluated today at bedside in the emergency room, she is resting comfortably. She has occasional soreness in the left leg. She has no other orthopedic complaints at this time. 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, chronic diverticulosis fe deficiency anemia , COPD, hyperlipidemia, rheumatoid arthritis, Last Myocardial Infarction Date:: 10/13/2014 History of Any Multi-Drug Resistant Organisms: None Reported Past Surgical History: Appendectomy, Bowel Resection, Cholecystectomy, Heart Catheterization, Heart Catheterization With Stent Additional Past Surgical History / Comment(s): bowel sx (adhesions), right foot, LEFT SHOULDER FX Past Anesthesia/Blood Transfusion Reactions: No Reported Reaction Date of Last Stent Placement:: 10/13/2014 Past Psychological History: Anxiety, Depression Smoking Status: Never smoker Past Alcohol Use History: None Reported Past Drug Use History: None Reported - Past Family History Father Family Medical History: Coronary Artery Disease (CAD) Additional Family Medical History / Comment(s): parkinsons, cabg x 4 vessels Mother Additional Family Medical History / Comment(s): at 54 from a coronary thrombosis Medications and Allergies Home Medications Medication Instructions Recorded Confirmed Type Cholecalciferol [Vitamin D3 (25 4,000 unit PO DAILY@1700 10/12/14 10/27/19 History Mcg = 1000 Iu)] Montelukast [Singulair] 10 mg PO HS@209910/12/14 10/27/19 History Nitroglycerin Sl Tabs [Nitrostat] 0.4 mg SUBLINGUAL Q5M PRN #0 tab 11/02/14 10/27/19 Rx Spironolactone [Aldactone] 12.5 mg PO Q48H 07/04/15 10/27/19 History Artificial Tears-Hypromellose 1 drops BOTH EYES QID PRN #0 bottle 07/10/15 10/27/19 Rx [Artificial Tear Drops] Metoprolol Tartrate [Lopressor] 12.5 mg PO BID tab 07/10/15 10/27/19 Rx Albuterol Nebulized [Ventolin 2.5 mg INHALATION RT-Q4H PRN 10/27/19 10/27/19 History Nebulized] Aspirin EC [Ecotrin Low Dose] 81 mg PO DAILY@0800 10/27/19 10/27/19 History Bisacodyl [Dulcolax] 10 mg RECTAL DAILY@0600 PRN 10/27/19 10/27/19 History Famotidine [Pepcid] 20 mg PO DAILY@0800 10/27/19 10/27/19 History Fluticasone/Salmeterol [Advair 1 puff INHALATION BID@0800,1700 10/27/19 10/27/19 History 500-50 Diskus] Levalbuterol Nebulized [Xopenex 1.25 mg INHALATION RT-DAILY PRN 10/27/19 10/27/19 History Nebulized] Levalbuterol Nebulized [Xopenex 1.25 mg INHALATION RT-TID 10/27/19 10/27/19 History Nebulized] Mag Hydrox/Al Hydrox/Simeth 15 ml PO Q6H PRN 10/27/19 10/27/19 History [Maalox] Magnesium Hydroxide [Milk of 2,400 mg PO DAILY PRN 10/27/19 10/27/19 History Magnesia] Melatonin 1 mg PO HS@209910/27/19 10/27/19 History Menthol [Biofreeze] 1 applic TOPICAL Q8H PRN 10/27/19 10/27/19 History Na Phos,M-B/Na Phos,Di-Ba [Fleet 133 ml RECTAL DAILY PRN 10/27/19 10/27/19 Hist ory Adult] Omeprazole 20 mg PO DAILY@0600 10/27/19 10/27/19 History Ondansetron [Zofran] 4 mg PO Q8HR PRN 10/27/19 10/27/19 History Polyethylene Glycol 3350 [Miralax] 17 gm PO HS@209910/27/19 10/27/19 History guaiFENesin [Mucinex] 1,200 mg PO BID@0800,209910/27/19 10/27/19 History predniSONE 5 mg PO HS@209910/27/19 10/27/19 History traZODone HCL [Desyrel] 125 mg PO HS@209910/27/19 10/27/19 History ALPRAZolam [Xanax] 0.25 mg PO HS #30 tablet 10/30/19 Rx Atorvastatin [Lipitor] 40 mg PO AC-SUPPER tab 10/30/19 Rx Furosemide [Lasix] 10 mg PO QAM tab 10/30/19 Rx HYDROcodone/APAP 5-325MG [[place] 1 each PO Q4HR PRN #28 tab 10/30/19 Rx 5-325] Heparin Sodium,Porcine [Heparin 5,000 unit SQ Q12HR #30 vial 10/30/19 Rx Sodium] Lisinopril [Zestril] 1.25 mg PO QAM tab 10/30/19 Rx Morphine Sulfate ER [Ms Contin] 15 mg PO DAILY PRN #28 tablet 10/30/19 Rx Allergies Allergy/AdvReac Type Severity Reaction Status Date / Time codeine Allergy Severe Anaphylaxis Verified 10/27/19 12:52 Echinacea Allergy Severe Anaphylaxis Verified 10/27/19 12:52 Sulfa (Sulfonamide Allergy Severe Anaphylaxis Verified 10/27/19 12:52 Antibiotics) alcohol AdvReac Unknown Unknown Verified 10/27/19 12:52 nitroglycerin AdvReac Unknown Unknown Verified 10/27/19 12:52 [From Nitrostat] Physical Examination Left lower extremity: Minimal soft tissue swelling and ecchymosis present in the leg Incision is clean, dry and intact Calf is soft, no tenderness with palpation Logroll maneuver of the leg reproduces minimal pain Plantar flexion, dorsiflexion, EHL, FHL are intact Sensory exam to light touch throughout the extremities intact, dorsalis pedis pulses 2+ Results - Labs Labs: Abnormal Lab Results - Last 24 Hours (Table) 11/05/19 11/05/19 11/05/19 Range/Units 20:21 20:21 20:21 WBC 16.3 H (3.8-10.6) k/uL RBC 3.67 L (3.80-5.40) m/uL Hgb 10.4 L (11.4-16.0) gm/dL Hct 33.7 L (34.0-46.0) % MCHC 30.9 L (31.0-37.0) g/dL Neutrophils # 13.9 H (1.3-7.7) k/uL Lymphocytes # (1.0-4.8) k/uL Monocytes # 1.1 H (0-1.0) k/uL APTT 18.8 L (22.0-30.0) sec Chloride (98-107) mmol/L Carbon Dioxide (22-30) mmol/L BUN 33 H (7-17) mg/dL Creatinine 1.19 H (0.52-1.04) mg/dL Glucose 159 H (74-99) mg/dL Calcium (8.4-10.2) mg/dL Total Protein 5.4 L (6.3-8.2) g/dL Albumin 2.9 L (3.5-5.0) g/dL Urine Nitrite (Negative) Ur Leukocyte Esterase (Negative) Urine WBC (0-5) /hpf Urine Bacteria (None) /hpf Urine Mucus (None) /hpf 11/05/19 11/06/19 11/06/19 Range/Units 21:22 05:56 05:56 WBC 19.2 H (3.8-10.6) k/uL RBC 3.22 L (3.80-5.40) m/uL Hgb 9.5 L (11.4-16.0) gm/dL Hct 30.1 L (34.0-46.0) % MCHC (31.0-37.0) g/dL Neutrophils # 17.0 H (1.3-7.7) k/uL Lymphocytes # 0.9 L (1.0-4.8) k/uL Monocytes # (0-1.0) k/uL APTT (22.0-30.0) sec Chloride 112 H (98-107) mmol/L Carbon Dioxide 21 L (22-30) mmol/L BUN 33 H (7-17) mg/dL Creatinine 1.37 H (0.52-1.04) mg/dL Glucose 127 H (74-99) mg/dL Calcium 8.1 L (8.4-10.2) mg/dL Total Protein 4.8 L (6.3-8.2) g/dL Albumin 2.4 L (3.5-5.0) g/dL Urine Nitrite Positive H (Negative) Ur Leukocyte Esterase Moderate H (Negative) Urine WBC 22 H (0-5) /hpf Urine Bacteria Rare H (None) /hpf Urine Mucus Rare H (None) /hpf Microbiology - Last 24 Hours (Table) 11/05/19 21:22 Urine Culture - Preliminary Urine,Clean Catch H & H 11/05/19 11/06/19 Range/Units 20:21 05:56 Hgb 10.4 L 9.5 L (11.4-16.0) gm/dL Hct 33.7 L 30.1 L (34.0-46.0) % Coagulation 11/05/19 Range/Units 20:21 INR 0.9 (<1.2) Result Diagrams: 11/06/19 05:56 11/06/19 05:56 - Diagnostic results Hip x-ray: report reviewed, image reviewed (X-rays of the pelvis and left hip demonstrate adequate hardware placement of the hemiarthroplasty components. No fractures or dislocations present) Assessment and Plan Assessment: Stable left hip hemiarthroplasty Recent left femoral neck fracture, status post left hemiarthroplasty UTI with sepsis Other medical comorbidities Plan: I was able to discuss this, including both physical exam findings and imaging studies my attending Dr. Bird Continue with postop instructions, daily dressing changes. Keep incision clean and dry, keep covered while showering Patient is scheduled for follow-up next week in the office for x-ray evaluation and recheck GI and DVT prophylaxis, continue subcu medication Other medical specialty recommendations We will be available for any further questions regarding this patient
[2019-11-06] MEDS: traMADol 50 MG TAB PO PRN ×2 (14:44→22:15)
[2019-11-06] MEDS: HEPARIN SODIUM,PORCINE 5,000 UNIT/ML 1 ML VIAL SQ SCH ×2 (15:01→22:19)
[2019-11-06] MEDS: PANTOPRAZOLE 40 MG/10 ML VIAL IVP SCH (15:03)
--- NOTE | 2019-11-06 15:46 | P.HPIM ---
History of Present Illness 79-year-old pleasant female came in with complaints of left hip discomfort which she had a hip surgery about a week ago. Patient was also having low-grade fevers denied any dysuria denied it is probably with pain. Patient had a chest x-ray showed atelectasis atelectasis may be contributing to her fever, her urine also is mildly abnormal with positive nitrate moderate leukocyte esterase and some elevated white blood cell count because of which patient was started on Rocephin which I'll continue. She also is elevated creatinine from her baseline of around 1-1.37 patient is on Lasix. Review of Systems REVIEW OF SYSTEMS: CONSTITUTIONAL: As mentioned in HPI HEENT: No recent visual problems or hearing problems. Denied any sore throat. CARDIOVASCULAR: No chest pain, orthopnea, PND, no palpitations, no syncope. PULMONARY: No shortness of breath, no cough, no hemoptysis. GASTROINTESTINAL: No diarrhea, no nausea, no vomiting, no abdominal pain. NEUROLOGICAL: No headaches, no weakness, no numbness. HEMATOLOGICAL: Denies any bleeding or petechiae. GENITOURINARY: Denies any burning micturition, frequency, or urgency. MUSCULOSKELETAL/RHEUMATOLOGICAL: As mentioned in HPI ENDOCRINE: Denies any polyuria or polydipsia. The rest of the 14-point review of systems is negative. 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, chronic diverticulosis fe deficiency anemia , COPD, hyperlipidemia, rheumatoid arthritis, Last Myocardial Infarction Date:: 10/13/2014 History of Any Multi-Drug Resistant Organisms: None Reported Past Surgical History: Appendectomy, Bowel Resection, Cholecystectomy, Heart Catheterization, Heart Catheterization With Stent Additional Past Surgical History / Comment(s): bowel sx (adhesions), right foot, LEFT SHOULDER FX Past Anesthesia/Blood Transfusion Reactions: No Reported Reaction Date of Last Stent Placement:: 10/13/2014 Past Psychological History: Anxiety, Depression Smoking Status: Never smoker Past Alcohol Use History: None Reported Past Drug Use History: None Reported - Past Family History Father Family Medical History: Coronary Artery Disease (CAD) Additional Family Medical History / Comment(s): parkinsons, cabg x 4 vessels Mother Additional Family Medical History / Comment(s): at 54 from a coronary thrombosis Medications and Allergies Home Medications Medication Instructions Recorded Confirmed Type Cholecalciferol [Vitamin D3 (25 4,000 unit PO DAILY@1700 10/12/14 11/06/19 History Mcg = 1000 Iu)] Montelukast [Singulair] 10 mg PO HS@209910/12/14 11/06/19 History Nitroglycerin Sl Tabs [Nitrostat] 0.4 mg SUBLINGUAL Q5M PRN #0 tab 11/02/1410/12 Rx Spironolactone [Aldactone] 12.5 mg PO Q48H 07/04/15 11/06/19 History Artificial Tears-Hypromellose 1 drops BOTH EYES QID PRN #0 bottle 07/10/15 11/06/19 Rx [Artificial Tear Drops] Albuterol Nebulized [Ventolin 2.5 mg INHALATION RT-Q4H PRN 10/27/19 11/06/19 History Nebulized] Aspirin EC [Ecotrin Low Dose] 81 mg PO DAILY@0800 10/27/19 11/06/19 History Bisacodyl [Dulcolax] 10 mg RECTAL DAILY@0600 PRN 10/27/19 11/06/19 History Famotidine [Pepcid] 20 mg PO DAILY@0800 10/27/19 11/06/19 History Fluticasone/Salmeterol [Advair 1 puff INHALATION BID@0800,1700 10/27/19 11/06/19 History 500-50 Diskus] Levalbuterol Nebulized [Xopenex 1.25 mg INHALATION RT-DAILY PRN 10/27/19 11/06/19 History Nebulized] Levalbuterol Nebulized [Xopenex 1.25 mg INHALATION RT-TID 10/27/19 11/06/19 History Nebulized] Mag Hydrox/Al Hydrox/Simeth 15 ml PO Q6H PRN 10/27/19 11/06/19 History [Maalox] Magnesium Hydroxide [Milk of 2,400 mg PO DAILY PRN 10/27/19 11/06/19 History Magnesia] Melatonin 1 mg PO HS@209910/27/19 11/06/19 History Menthol [Biofreeze] 1 applic TOPICAL Q8H PRN 10/27/19 11/06/19 History Na Phos,M-B/Na Phos,Di-Ba [Fleet 133 ml RECTAL DAILY PRN 10/27/19 11/06/19 History Adult] Omeprazole 20 mg PO DAILY@0600 10/27/19 11/06/19 History Ondansetron [Zofran] 4 mg PO Q8HR PRN 10/27/19 11/06/19 History Polyethylene Glycol 3350 [Miralax] 17 gm PO HS@209910/27/19 11/06/19 History guaiFENesin [Mucinex] 1,200 mg PO BID@0800,209910/27/19 11/06/19 History predniSONE 5 mg PO HS@209910/27/19 11/06/19 History traZODone HCL [Desyrel] 125 mg PO HS@209910/27/19 11/06/19 History ALPRAZolam [Xanax] 0.25 mg PO HS #30 tablet 10/30/19 11/06/19 Rx Atorvastatin [Lipitor] 40 mg PO AC-SUPPER tab 10/30/19 11/06/19 Rx Furosemide [Lasix] 10 mg PO QAM tab 10/30/19 11/06/19 Rx HYDROcodone/APAP 5-325MG [[place] 1 each PO Q4HR PRN #28 tab 10/30/19 11/06/19 Rx 5-325] Heparin Sodium,Porcine [Heparin 5,000 unit SQ Q12HR #30 vial 10/30/19 11/06/19 Rx Sodium] Lisinopril [Zestril] 1.25 mg PO QAM tab 10/30/19 11/06/19 Rx Morphine Sulfate ER [Ms Contin] 15 mg PO DAILY PRN #28 tablet 10/30/19 11/06/19 Rx Metoprolol Tartrate 12.5 mg PO BID 11/06/19 11/06/19 History Allergies Allergy/AdvReac Type Severity Reaction Status Date / Time codeine Allergy Severe Anaphylaxis Verified 10/27/19 12:52 Echinacea Allergy Severe Anaphylaxis Verified 10/27/19 12:52 Sulfa (Sulfonamide Allergy Severe Anaphylaxis Verified 10/27/19 12:52 Antibiotics) alcohol AdvReac Unknown Unknown Verified 10/27/19 12:52 nitroglycerin AdvReac Unknown Unknown Verified 10/27/19 12:52 [From Nitrostat] Physical Exam Vitals: Vital Signs Temp Pulse Resp BP Pulse Ox 11/06/19 14:46 99.6 F 85 18 126/61 95 11/06/19 08:56 99.7 F H 11/06/19 07:35 85 18 105/46 93 L 11/06/19 06:00 16 96/43 93 L 11/06/19 04:00 96 18 105/52 94 L 11/06/19 03:15 82 18 100/47 93 L 11/06/19 03:00 106/46 95 11/06/19 02:30 107/52 95 11/06/19 02:00 95/37 91 L 11/06/19 01:30 91/35 100 11/06/19 01:00 91/38 93 L 11/06/19 00:51 88 18 91/38 96 11/06/19 00:30 85/39 92 L 11/06/19 00:00 72/37 91 L 11/05/19 23:30 100/46 92 L 11/05/19 23:00 97/53 95 11/05/19 22:30 97/47 93 L 11/05/19 22:07 100 18 97/47 93 L 11/05/19 22:00 116/101 94 L 11/05/19 21:30 100/45 93 L 11/05/19 21:00 100/45 11/05/19 20:30 102/45 90 L 11/05/19 20:05 90 L 11/05/19 20:04 100.4 F H 83 18 102/45 92 L Intake and Output 11/06/19 11/06/19 11/06/19 06:59 14:59 22:59 Other: Voiding Method Indwelling Catheter PHYSICAL EXAMINATION: GENERAL: The patient is alert and oriented x3, not in any acute distress. Well developed, well nourished. HEENT: Pupils are round and equally reacting to light. EOMI. No scleral icterus. No conjunctival pallor. Normocephalic, atraumatic. No pharyngeal erythema. No thyromegaly. CARDIOVASCULAR: S1 and S2 present. No murmurs, rubs, or gallops. PULMONARY: Chest is clear to auscultation, no wheezing or crackles. ABDOMEN: Soft, nontender, nondistended, normoactive bowel sounds. No palpable organomegaly. MUSCULOSKELETAL: Deferred to orthopedic surgery EXTREMITIES: No cyanosis, clubbing, or pedal edema. NEUROLOGICAL: Gross neurological examination did not reveal any focal deficits. SKIN: No rashes. Results CBC & Chem 7: 11/06/19 05:56 11/06/19 05:56 Labs: Abnormal Lab Results - Last 24 Hours (Table) 11/05/19 11/05/19 11/05/19 Range/Units 20:21 20:21 20:21 WBC 16.3 H (3.8-10.6) k/uL RBC 3.67 L (3.80-5.40) m/uL Hgb 10.4 L (11.4-16.0) gm/dL Hct 33.7 L (34.0-46.0) % MCHC 30.9 L (31.0-37.0) g/dL Neutrophils # 13.9 H (1.3-7.7) k/uL Lymphocytes # (1.0-4.8) k/uL Monocytes # 1.1 H (0-1.0) k/uL APTT 18.8 L (22.0-30.0) sec Chloride (98-107) mmol/L Carbon Dioxide (22-30) mmol/L BUN 33 H (7-17) mg/dL Creatinine 1.19 H (0.52-1.04) mg/dL Glucose 159 H (74-99) mg/dL Calcium (8.4-10.2) mg/dL Total Protein 5.4 L (6.3-8.2) g/dL Albumin 2.9 L (3.5-5.0) g/dL Urine Nitrite (Negative) Ur Leukocyte Esterase (Negative) Urine WBC (0-5) /hpf Urine Bacteria (None) /hpf Urine Mucus (None) /hpf 11/05/19 11/06/19 11/06/19 Range/Units 21:22 05:56 05:56 WBC 19.2 H (3.8-10.6) k/uL RBC 3.22 L (3.80-5.40) m/uL Hgb 9.5 L (11.4-16.0) gm/dL Hct 30.1 L (34.0-46.0) % MCHC (31.0-37.0) g/dL Neutrophils # 17.0 H (1.3-7.7) k/uL Lymphocytes # 0.9 L (1.0-4.8) k/uL Monocytes # (0-1.0) k/uL APTT (22.0-30.0) sec Chloride 112 H (98-107) mmol/L Carbon Dioxide 21 L (22-30) mmol/L BUN 33 H (7-17) mg/dL Creatinine 1.37 H (0.52-1.04) mg/dL Glucose 127 H (74-99) mg/dL Calcium 8.1 L (8.4-10.2) mg/dL Total Protein 4.8 L (6.3-8.2) g/dL Albumin 2.4 L (3.5-5.0) g/dL Urine Nitrite Positive H (Negative) Ur Leukocyte Esterase Moderate H (Negative) Urine WBC 22 H (0-5) /hpf Urine Bacteria Rare H (None) /hpf Urine Mucus Rare H (None) /hpf Microbiology - Last 24 Hours (Table) 11/05/19 21:22 Urine Culture - Preliminary Urine,Clean Catch Assessment and Plan Plan: Systemic inflammatory response syndrome: [place]andy secondary to atelectasis but I cannot completely rule out sepsis from urinary tract infection because of that reason I'll continue with antibiotics we'll await urine cultures. 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
[2019-11-06] MEDS: ATORVASTATIN 40 MG TAB PO SCH (17:56)
[2019-11-06] MEDS: METOPROLOL TARTRATE 12.5 MG TAB PO SCH (22:14)
[2019-11-06] MEDS: ACETAMINOPHEN TAB 325 MG TAB PO PRN (22:15)
[2019-11-07 08:46] LABS: Basophils % (A) 0 %; Eosinophils # (A) 0.1 k/uL (0-0.7); Eosinophils % (A) 1 %; HCT 34.8 % (34.0-46.0); Hypochromasia Marked; Lymphocytes % (A) 5 %; MCHC 28.7 g/dL (31.0-37.0); MCV 97.4 fL (80.0-100.0); Mean Platelet Volume 7.3; Monocytes % (A) 5 %; Neutrophils # (A) 17.9 k/uL (1.3-7.7); Neutrophils % (A) 87 %; Platelet Count 288 k/uL (150-450); RBC 3.58 m/uL (3.80-5.40); RDW 14.6 % (11.5-15.5); WBC 20.5 k/uL (3.8-10.6)
[2019-11-07] MEDS ORDERED: ONDANSETRON 4 MG/2 ML VIAL IVP PRN (08:47)
[2019-11-07] MEDS: SODIUM CHLORIDE 0.9% 1,000 ML IV SCH (08:48)
[2019-11-07] MEDS: METOPROLOL TARTRATE 12.5 MG TAB PO SCH ×2 (08:48→21:58)
[2019-11-07] MEDS: HEPARIN SODIUM,PORCINE 5,000 UNIT/ML 1 ML VIAL SQ SCH ×2 (08:49→21:59)
[2019-11-07] MEDS: PANTOPRAZOLE 40 MG/10 ML VIAL IVP SCH (08:49)
[2019-11-07] MEDS: traMADol 50 MG TAB PO PRN ×3 (08:49→21:58)
[2019-11-07 09:10] LABS: Calcium 8.2 mg/dL (8.4-10.2); Potassium 4.4 mmol/L (3.5-5.1)
--- NOTE | 2019-11-07 12:58 | P.PN ---
Subjective 79-year-old female is being treated for urinary tract infection urine cultures are pending of the negative patient will not require antibiotics patient also has acute renal failure improved with IV fluids patient is off Lasix probably IV fluids can be discontinued. Patient was also complaining of hip pain patient had a recent hip surgery, orthopedic surgery evaluated the patient no further intervention from their perspective and patient pain is well-controlled was 3 get the urine cultures and was are finalized patient probably can be discharged. Although patient is bit nauseous today probably because of the antibiotics patient is on Protonix and continue with Zofran. Constitutional: Denied any fatigue denied any fever. Cardio vascular: denied any chest pain, palpitations Gastrointestinal as mentioned in HPI Pulmonary: Denied any shortness of breath cough Neurologic denied any new focal deficits All inpatient medications were reviewed and appropriate changes in these medications as dictated in the interval history and assessment and plan. Objective - Vital Signs Vital signs: Vital Signs Temp 99.6 F 11/07/19 07:00 Pulse 87 11/07/19 07:00 Resp 17 11/07/19 07:00 BP 169/85 11/07/19 07:00 Pulse Ox 96 11/07/19 07:00 Intake & Output 11/06/19 11/07/19 11/07/19 18:59 06:59 18:59 Intake Total 1000 Output Total 800 Balance -800 1000 Weight 77.564 kg Intake: IV 1000 Sodium Chloride 0.9% 1, 600 000 ml @ 75 mls/hr IV . [id number] [facility] Rx#:[id number] cefTRIAXone 1 gm In 400 Sodium Chloride 0.9% 50 ml @ 100 mls/hr IVPB Q12H [facility] Rx#:[id number] Output: Urine 800 Other: Voiding Method Indwelling Catheter Indwelling Catheter Indwelling Catheter # Bowel Movements 1 - Exam PHYSICAL EXAMINATION: GENERAL: The patient is alert and oriented x3, not in any acute distress. Well developed, well nourished. HEENT: Pupils are round and equally reacting to light. EOMI. No scleral icterus. No conjunctival pallor. Normocephalic, atraumatic. No pharyngeal erythema. No thyromegaly. CARDIOVASCULAR: S1 and S2 present. No murmurs, rubs, or gallops. PULMONARY: Chest is clear to auscultation, no wheezing or crackles. ABDOMEN: Soft, nontender, nondistended, normoactive bowel sounds. No palpable organomegaly. MUSCULOSKELETAL: Deferred to orthopedic surgery EXTREMITIES: No cyanosis, clubbing, or pedal edema. NEUROLOGICAL: Gross neurological examination did not reveal any focal deficits. SKIN: No rashes. - Labs CBC & Chem 7: 11/07/19 07:51 11/07/19 07:51 Labs: Abnormal Lab Results - Last 24 Hours (Table) 11/07/19 11/07/19 Range/Units 07:51 07:51 WBC 20.5 H (3.8-10.6) k/uL RBC 3.58 L (3.80-5.40) m/uL Hgb 10.0 L (11.4-16.0) gm/dL MCHC 28.7 L (31.0-37.0) g/dL Neutrophils # 17.9 H (1.3-7.7) k/uL Chloride 111 H (98-107) mmol/L Carbon Dioxide 18 L (22-30) mmol/L BUN 27 H (7-17) mg/dL Creatinine 1.16 H (0.52-1.04) mg/dL Calcium 8.2 L (8.4-10.2) mg/dL Microbiology - Last 24 Hours (Table) 11/05/19 20:21 Blood Culture - Preliminary Blood No Growth after 24 hours 11/05/19 21:22 Urine Culture - Preliminary Urine,Clean Catch Assessment and Plan Plan: Systemic inflammatory response syndrome: Possibly secondary to atelectasis but I cannot completely rule out sepsis from urinary tract infection because of that reason I'll continue with antibiotics we'll await urine cultures. 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
[2019-11-07 13:33] VITALS: BMI 28.4
[2019-11-07] MEDS: ATORVASTATIN 40 MG TAB PO SCH (16:27)
[2019-11-07] MEDS: ACETAMINOPHEN TAB 325 MG TAB PO PRN (22:08)
[2019-11-07] MEDS: ONDANSETRON 4 MG TAB PO PRN (22:17)
[2019-11-08] MEDS: traMADol 50 MG TAB PO PRN ×2 (05:33→13:13)
[2019-11-08] MEDS: PANTOPRAZOLE 40 MG/10 ML VIAL IVP SCH (08:26)
[2019-11-08] MEDS: HEPARIN SODIUM,PORCINE 5,000 UNIT/ML 1 ML VIAL SQ SCH ×2 (08:27→22:17)
[2019-11-08] MEDS: METOPROLOL TARTRATE 12.5 MG TAB PO SCH ×2 (08:27→22:12)
[2019-11-08] MEDS: ONDANSETRON 4 MG TAB PO PRN (08:34)
[2019-11-08 10:28] LABS: HCT 32.1 % (34.0-46.0); HGB 9.8 gm/dL (11.4-16.0); Hypochromasia Marked; MCH 28.6 pg (25.0-35.0); MCHC 30.5 g/dL (31.0-37.0); MCV 93.8 fL (80.0-100.0); Mean Platelet Volume 7.8; Platelet Count 272 k/uL (150-450); RBC 3.42 m/uL (3.80-5.40); RDW 14.6 % (11.5-15.5); WBC 16.4 k/uL (3.8-10.6)
[2019-11-08 10:45] LABS: Calcium 8.4 mg/dL (8.4-10.2)
[2019-11-08] MEDS ORDERED: ARTIFICIAL TEARS-HYPROMELLOSE DROPS 15 ML BTL BOTH EYES PRN (10:49)
[2019-11-08] MEDS: LEVOFLOXACIN 500MG-D5W PMX 500 MG in DEXTROSE/WATER 1 100ML.BAG IVPB SCH (13:10)
[2019-11-08] MEDS: LACTATED RINGERS 1,000 ML IV SCH ×2 (15:04→19:14)
--- NOTE | 2019-11-08 15:37 | CDI ---
Documentation Clarification Form Date: 11/08/2019 CDS: Peyton Myers, CCS, CCDS Admit Date: 11/05/2019 Patient Name: Lexie Solis Discharge Date: ATTENTION: The Clinical Documentation Specialists (CDI) and [employer] Coding Staff appreciate your assistance in clarifying documentation. Please respond to the clarification below the line at the bottom and electronically sign. The CDI & [employer] Coding staff will review the response and follow-up if needed. Please note: Queries are made part of the Legal Health Record. If you have any questions, please contact the author of this message via ITS. Dear Dr. Jeyson Garrett: 79 yo female, presented to the ED via EMS on 11/04 with fever, nausea, one episode of vomiting & diarrhea. Has some pain to left hip due to recent left hip hemiarthroplasty. COVID test on admission. Patient history/risk factors: Hypertension, Hyperlipidemia, CKD II, COPD, Obesity, OA left hip status post hemiarthroplasty, discharged to rehab, not stated if admit from home or rehab facility. Clinical Indicators: Presented to the ED as above, admitted with SIRS, but sepsis from UTI is not ruled out. COVID test 11/04: Negative CXR 11/04: Mild subsegmental atelectasis LLL. Labs 11/04: WBC 16.3, Hgb 10.4, Neut 13.9, BUN 33, Cr 1.19, Lactic Acid 1.1. Vital Signs 11/04: T 98.2, P 92, R 18, BP 110/53, PO 93 RA Treatment: IV Pepcid, IV Zofran, IV fluid 1,000 mls @ 75 mls/hr, IV Rocephin, IV fluid bolus 500 mls @ 999 mls/hr, IV Levaquin. In order to capture the severity of condition, please clarify if the above treatment/clinical indicators signify: COVID-19 ruled out False Negative COVID-19, suspected, treated Other, please specify Unable to determine (Last Form Revision: August 2019) COVID-19 ruled out MTDD
[2019-11-08] MEDS: ATORVASTATIN 40 MG TAB PO SCH (17:37)
[2019-11-08] MEDS: ACETAMINOPHEN TAB 325 MG TAB PO PRN (17:39)
--- NOTE | 2019-11-08 17:58 | P.PN ---
Progress Note - Text Progress Note Date: 11/08/19 Presenting complaint: Nausea vomiting Interval history: Asymmetry with UTI. Also acute kidney injury. Also had some hip pain from recent hip surgery. Seen by orthopedics. Today-patient is nauseated. No abdominal pain. No fever no chills. Doesn't wish to admit eat anything. Had little bit of water. Tired Review of systems: Was done for constitutional, cardiovascular, GI, pulmonary. relevant finding as above Active Medications Acetaminophen (Tylenol Tab) 650 mg PO Q4HR PRN PRN Reason: Fever and/ or Pain Last Admin: 11/08/19 17:39 Dose: 650 mg Documented by: Alprazolam (Xanax) 0.25 mg PO HS [facility] Artificial Tears (Artificial Tear Drops) 1 drops BOTH EYES QID PRN PRN Reason: Dry Eye(s) Atorvastatin Calcium (Lipitor) 40 mg PO AC-SUPPER [facility] Last Admin: 11/08/19 17:37 Dose: 40 mg Documented by: Famotidine (Pepcid) 20 mg PO BID [facility] Heparin Sodium (Porcine) (Heparin) 5,000 unit SQ Q12HR [facility] Last Admin: 11/08/19 08:27 Dose: 5,000 unit Documented by: Levofloxacin 500 mg/ IV (Solution) 100 mls @ 100 mls/hr IVPB Q24H [facility] Last Admin: 11/08/19 13:10 Dose: 100 mls/hr Documented by: Lactated Ringer's (Lactated Ringers) 1,000 mls @ 125 mls/hr IV .Q8H [facility] Last Admin: 11/08/19 15:04 Dose: 125 mls/hr Documented by: Melatonin (Melatonin) 1 mg PO HS@2100 [facility] Metoprolol Tartrate (Lopressor) 12.5 mg PO BID [facility] Last Admin: 11/08/19 08:27 Dose: 12.5 mg Documented by: Montelukast Sodium (Singulair) 10 mg PO HS@2100 [facility] Naloxone HCl (Narcan) 0.2 mg IV Q2M PRN PRN Reason: Opioid Reversal Ondansetron HCl (Zofran) 4 mg IVP Q6HR PRN PRN Reason: Nausea And Vomiting Last Admin: 11/07/19 08:57 Dose: 4 mg Documented by: Ondansetron HCl (Zofran) 4 mg PO Q8HR PRN PRN Reason: Nausea And Vomiting Last Admin: 11/08/19 08:34 Dose: 4 mg Documented by: Tramadol HCl (Ultram) 50 mg PO QID PRN PRN Reason: Pain/Discomfort Last Admin: 11/08/19 13:13 Dose: 50 mg Documented by: On examination: VITAL SIGNS: 98.8, 90, 18, 137 77,95%onroomair GENERAL APPEARANCE: Average build. Lying in bed, tired HEENT: Normal external appearance of nose and ear. Oral cavity dry EYES: Pupils equal. Conjunctiva normal. NECK: JVD not raised. Mass not palpable. RESPIRATORY: Respiratory effort normal. Lungs clear to auscultation. CARDIOVASCULAR: First and second sounds normal. No edema. ABDOMEN: Soft. Liver and spleen not palpable. No tenderness. No mass palpable. PSYCHIATRY: Alert and oriented x3. Mood and affect normal. INVESTIGATIONS, reviewed in the clinical context: White count 16.4 hemoglobin 9.8 potassium 4 bicarb 19 bun 21 creatinine 1.06 Admitting testing: White count 16.3 hemoglobin 10.4 potassium 4.1 bun 33 creatinine 1.19 Albumin 2.4 UA positive for leukoesterase, nitrite Urine culture positive for pseudomonas aeruginosa Blood culture-negative Assessment: -Acute UTI from cystitis from pseudomonas aeruginosa -Persistent nausea likely from urinary infection -Clinical dehydration -Coronary artery disease with stent to the RCA and LAD -COPD in a nonsmoker -GERD -Essential hypertension -Chronic rheumatoid arthritis -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 Patient is clinically dehydrated. We'll give IV fluids. Advance diet as tolerated. Discussed with the patient.
[2019-11-08] MEDS: FAMOTIDINE 20 MG TAB PO SCH (22:12)
[2019-11-08] MEDS: MONTELUKAST 10 MG TAB PO SCH (22:13)
[2019-11-08] MEDS: ALPRAZolam 0.25 MG TAB PO SCH (22:13)
[2019-11-08] MEDS: MELATONIN 1 MG TAB PO SCH (22:17)
[2019-11-09] MEDS: traMADol 50 MG TAB PO PRN ×4 (02:03→23:23)
[2019-11-09] MEDS: LACTATED RINGERS 1,000 ML IV SCH ×2 (03:22→17:39)
[2019-11-09] MEDS: ACETAMINOPHEN TAB 325 MG TAB PO PRN ×3 (04:45→17:57)
[2019-11-09] MEDS: FAMOTIDINE 20 MG TAB PO SCH (07:14)
[2019-11-09] MEDS: METOPROLOL TARTRATE 12.5 MG TAB PO SCH ×2 (07:14→19:58)
[2019-11-09] MEDS: HEPARIN SODIUM,PORCINE 5,000 UNIT/ML 1 ML VIAL SQ SCH ×2 (07:15→19:59)
[2019-11-09] MEDS ORDERED: LEVOFLOXACIN 500 MG TAB PO SCH (12:00)
[2019-11-09] MEDS: LEVOFLOXACIN 500MG-D5W PMX 500 MG in DEXTROSE/WATER 1 100ML.BAG IVPB SCH (13:30)
[2019-11-09] MEDS: ATORVASTATIN 40 MG TAB PO SCH (16:30)
[2019-11-09] MEDS: ONDANSETRON 4 MG TAB PO PRN (17:58)
[2019-11-09] MEDS: MONTELUKAST 10 MG TAB PO SCH (19:58)
[2019-11-09] MEDS: ALPRAZolam 0.25 MG TAB PO SCH (19:58)
[2019-11-09] MEDS: MELATONIN 1 MG TAB PO SCH (19:59)
--- NOTE | 2019-11-09 22:23 | P.PN ---
Progress Note - Text Progress Note Date: 11/09/19 Presenting complaint: Nausea vomiting Interval history: Admitted with UTI. Also acute kidney injury. Also had some hip pain from recent hip surgery. Seen by orthopedics. Today-no vomiting is now more. Nausea improving. Less tired. Oral intake improving Review of systems: Was done for constitutional, cardiovascular, GI, pulmonary. relevant finding as above Active Medications Acetaminophen (Tylenol Tab) 650 mg PO Q4HR PRN PRN Reason: Fever and/ or Pain Last Admin: 11/09/19 17:57 Dose: 650 mg Documented by: Alprazolam (Xanax) 0.25 mg PO HS [facility] Last Admin: 11/09/19 19:58 Dose: 0.25 mg Documented by: Artificial Tears (Artificial Tear Drops) 1 drops BOTH EYES QID PRN PRN Reason: Dry Eye(s) Atorvastatin Calcium (Lipitor) 40 mg PO AC-SUPPER [facility] Last Admin: 11/09/19 16:30 Dose: 40 mg Documented by: Famotidine (Pepcid) 20 mg PO DAILY [facility] Heparin Sodium (Porcine) (Heparin) 5,000 unit SQ Q12HR [facility] Last Admin: 11/09/19 19:59 Dose: 5,000 unit Documented by: Levofloxacin (Levaquin) 250 mg PO Q24H [facility] Melatonin (Melatonin) 1 mg PO HS@2100 [facility] Last Admin: 11/09/19 19:59 Dose: 1 mg Documented by: Metoprolol Tartrate (Lopressor) 12.5 mg PO BID [facility] Last Admin: 11/09/19 19:58 Dose: 12.5 mg Documented by: Montelukast Sodium (Singulair) 10 mg PO HS@2100 [facility] Last Admin: 11/09/19 19:58 Dose: 10 mg Documented by: Naloxone HCl (Narcan) 0.2 mg IV Q2M PRN PRN Reason: Opioid Reversal Ondansetron HCl (Zofran) 4 mg IVP Q6HR PRN PRN Reason: Nausea And Vomiting Last Admin: 11/07/19 08:57 Dose: 4 mg Documented by: Ondansetron HCl (Zofran) 4 mg PO Q8HR PRN PRN Reason: Nausea And Vomiting Last Admin: 11/09/19 17:58 Dose: 4 mg Documented by: Tramadol HCl (Ultram) 50 mg PO QID PRN PRN Reason: Pain/Discomfort Last Admin: 11/09/19 13:46 Dose: 50 mg Documented by: On examination: VITAL SIGNS: 98.6, 85, 18, 118/72, 94% room air GENERAL APPEARANCE: Propped up in bed, looking a bit better today HEENT: Normal external appearance of nose and ear. Oral cavity dry EYES: Pupils equal. Conjunctiva normal. NECK: JVD not raised. Mass not palpable. RESPIRATORY: Respiratory effort normal. Lungs clear to auscultation. CARDIOVASCULAR: First and second sounds normal. No edema. ABDOMEN: Soft. Liver and spleen not palpable. No tenderness. No mass palpable. PSYCHIATRY: Alert and oriented x3. Mood and affect normal. INVESTIGATIONS, reviewed in the clinical context: White count 16.4 hemoglobin 9.8 potassium 4 bun 21 creatinine 1.06 Admitting testing: White count 16.3 hemoglobin 10.4 potassium 4.1 bun 33 creatinine 1.19 Albumin 2.4 UA positive for leukoesterase, nitrite Urine culture positive for pseudomonas aeruginosa Blood culture-negative Assessment: -Acute UTI from cystitis from pseudomonas aeruginosa -Persistent nausea likely from urinary infection -Clinical dehydration -Coronary artery disease with stent to the RCA and LAD -COPD in a nonsmoker -GERD -Essential hypertension -Chronic rheumatoid arthritis -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 We'll DC IV fluids. 3. Encourage oral intake. Hopefully can discharge to ECF tomorrow. Discussed with the patient. Repeat labs in the morning..
[2019-11-10] MEDS: ACETAMINOPHEN TAB 325 MG TAB PO PRN ×2 (03:12→12:43)
[2019-11-10 07:39] LABS: Basophils % (A) 0 %; Eosinophils # (A) 0.1 k/uL (0-0.7); Eosinophils % (A) 1 %; HCT 31.3 % (34.0-46.0); HGB 9.7 gm/dL (11.4-16.0); Hypochromasia Moderate; Lymphocytes # (A) 0.8 k/uL (1.0-4.8); Lymphocytes % (A) 8 %; MCH 28.4 pg (25.0-35.0); MCV 91.6 fL (80.0-100.0); Mean Platelet Volume 8.5; Monocytes # (A) 1.4 k/uL (0-1.0); Monocytes % (A) 13 %; Neutrophils # (A) 7.6 k/uL (1.3-7.7); Neutrophils % (A) 75 %; Platelet Count 276 k/uL (150-450); RBC 3.42 m/uL (3.80-5.40); RDW 14.6 % (11.5-15.5); WBC 10.2 k/uL (3.8-10.6)
[2019-11-10 07:53] VITALS: BP 105/54; PULSE 96; RESP 15; TEMP 98.9
[2019-11-10] MEDS ORDERED: FAMOTIDINE 20 MG TAB PO SCH (09:00)
[2019-11-10] MEDS: HEPARIN SODIUM,PORCINE 5,000 UNIT/ML 1 ML VIAL SQ SCH (09:12)
[2019-11-10] MEDS: METOPROLOL TARTRATE 12.5 MG TAB PO SCH (09:12)
[2019-11-10] MEDS: traMADol 50 MG TAB PO PRN (09:15)
[2019-11-10 09:22] LABS: Calcium 8.1 mg/dL (8.4-10.2); Potassium 4.1 mmol/L (3.5-5.1)
[2019-11-10] MEDS ORDERED: LEVOFLOXACIN 250 MG TAB PO SCH (12:00)
[2019-11-10] MEDS: ONDANSETRON 4 MG TAB PO PRN (12:41)
--- NOTE | 2019-11-10 13:11 | P.DS ---
Providers Date of admission: 11/05/19 23:08 Expected date of discharge: 11/10/19 Attending physician: Jeyson Garrett Consults: 11/05/19 23:10 Consult Physician Urgent Consulting Provider: Hao Bird Consult Reason/Comments: post op evaluation and care Do you want consulting provider notified?: Yes Primary care physician: [facility] Course: Presenting complaint: Nausea vomiting Interval history: Admitted with UTI. Also acute kidney injury. Also had some hip pain from recent hip surgery. Seen by orthopedics. Today-oral intake is better. Slight nausea. Pain control. Laying in bed. Consultation: Dr. Weiss from orthopedics On examination: VITAL SIGNS: 98.9, 96, 15, 105/54, 93% on room air GENERAL APPEARANCE: laying in bed, comfortable HEENT: Normal external appearance of nose and ear. Oral cavity dry EYES: Pupils equal. Conjunctiva normal. NECK: JVD not raised. Mass not palpable. RESPIRATORY: Respiratory effort normal. Lungs clear to auscultation. CARDIOVASCULAR: First and second sounds normal. No edema. ABDOMEN: Soft. Liver and spleen not palpable. No tenderness. No mass palpable. PSYCHIATRY: Alert and oriented x3. Mood and affect normal. INVESTIGATIONS, reviewed in the clinical context: white count 10.2 hemoglobin 9.7creatinine 0.96 Admitting testing: White count 16.3 hemoglobin 10.4 potassium 4.1 bun 33 creatinine 1.19 Albumin 2.4 UA positive for leukoesterase, nitrite Urine culture positive for pseudomonas aeruginosa Blood culture-negative Assessment: -Acute UTI from cystitis from pseudomonas aeruginosa , POA -Persistent nausea likely from urinary infection-improving -Clinical dehydration -Coronary artery disease with stent to the RCA and LAD -COPD in a nonsmoker -GERD -Essential hypertension -Chronic rheumatoid arthritis -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 -Chronic colonic diverticulosis -Hyperlipidemia - chronic kidney disease stage III -Recent left hip hemiarthroplasty -Acute postop blood loss anemia as expected from surgery -Acute kidney injury likely prerenal disposition: F/[place] Patient Condition at Discharge: Stable Plan - Discharge Summary Discharge Rx Participant: No New Discharge Prescriptions: Continue Montelukast [Singulair] 10 mg PO HS@2100 Cholecalciferol [Vitamin D3 (25 Mcg = 1000 Iu)] 4,000 unit PO DAILY@1700 Nitroglycerin Sl Tabs [Nitrostat] 0.4 mg SUBLINGUAL Q5M PRN #0 tab PRN Reason: Chest Pain Artificial Tears-Hypromellose [Artificial Tear Drops] 1 drops BOTH EYES QID PRN #0 bottle PRN Reason: Dry Eye(S) Ondansetron [Zofran] 4 mg PO Q8HR PRN PRN Reason: Nausea Levalbuterol Nebulized [Xopenex Nebulized] 1.25 mg INHALATION RT-DAILY PRN PRN Reason: Shortness Of Breath Magnesium Hydroxide [Milk of Magnesia] 2,400 mg PO DAILY PRN PRN Reason: Constipation Mag Hydrox/Al Hydrox/Simeth [Maalox] 15 ml PO Q6H PRN PRN Reason: GI DISTRESS Na Phos,M-B/Na Phos,Di-Ba [Fleet Adult] 133 ml RECTAL DAILY PRN PRN Reason: Constipation Bisacodyl [Dulcolax] 10 mg RECTAL DAILY@0600 PRN PRN Reason: Constipation Menthol [Biofreeze] 1 applic TOPICAL Q8H PRN PRN Reason: JOINT PAIN Levalbuterol Nebulized [Xopenex Nebulized] 1.25 mg INHALATION RT-TID Fluticasone/Salmeterol [Advair 500-50 Diskus] 1 puff INHALATION BID@0800,1700 traZODone HCL [Desyrel] 125 mg PO HS@2100 predniSONE 5 mg PO HS@2100 Polyethylene Glycol 3350 [Miralax] 17 gm PO HS@2100 Melatonin 1 mg PO HS@2100 Aspirin EC [Ecotrin Low Dose] 81 mg PO DAILY@0800 Heparin Sodium,Porcine [Heparin Sodium] 5,000 unit SQ Q12HR #30 vial Atorvastatin [Lipitor] 40 mg PO AC-SUPPER tab Metoprolol Tartrate 12.5 mg PO BID ALPRAZolam [Xanax] 0.25 mg PO HS #3 tablet Changed HYDROcodone/APAP 5-325MG [[place] 5-325] 1 each PO Q6H PRN #12 tab PRN Reason: Pain Famotidine [Pepcid] 20 mg PO BID #0 Discontinued Spironolactone [Aldactone] 12.5 mg PO Q48H Albuterol Nebulized [Ventolin Nebulized] 2.5 mg INHALATION RT-Q4H PRN PRN Reason: Shortness Of Breath guaiFENesin [Mucinex] 1,200 mg PO BID@0800,2099 Omeprazole 20 mg PO DAILY@0600 Morphine Sulfate ER [Ms Contin] 15 mg PO DAILY PRN #28 tablet PRN Reason: Pain Furosemide [Lasix] 10 mg PO QAM tab Lisinopril [Zestril] 1.25 mg PO QAM tab Discharge Medication List Cholecalciferol [Vitamin D3 (25 Mcg = 1000 Iu)] 4,000 unit PO DAILY@1700 10/12/14 [History] Montelukast [Singulair] 10 mg PO HS@209910/12/14 [History] Nitroglycerin Sl Tabs [Nitrostat] 0.4 mg SUBLINGUAL Q5M PRN #0 tab 11/02/14 [Rx] Artificial Tears-Hypromellose [Artificial Tear Drops] 1 drops BOTH EYES QID PRN #0 bottle 07/10/15 [Rx] Aspirin EC [Ecotrin Low Dose] 81 mg PO DAILY@0800 10/27/19 [History] Bisacodyl [Dulcolax] 10 mg RECTAL DAILY@0600 PRN 10/27/19 [History] Fluticasone/Salmeterol [Advair 500-50 Diskus] 1 puff INHALATION BID@0800,1700 10/27/19 [History] Levalbuterol Nebulized [Xopenex Nebulized] 1.25 mg INHALATION RT-DAILY PRN 10/27/19 [History] Levalbuterol Nebulized [Xopenex Nebulized] 1.25 mg INHALATION RT-TID 10/27/19 [History] Mag Hydrox/Al Hydrox/Simeth [Maalox] 15 ml PO Q6H PRN 10/27/19 [History] Magnesium Hydroxide [Milk of Magnesia] 2,400 mg PO DAILY PRN 10/27/19 [History] Melatonin 1 mg PO HS@209910/27/19 [History] Menthol [Biofreeze] 1 applic TOPICAL Q8H PRN 10/27/19 [History] Na Phos,M-B/Na Phos,Di-Ba [Fleet Adult] 133 ml RECTAL DAILY PRN 10/27/19 [History] Ondansetron [Zofran] 4 mg PO Q8HR PRN 10/27/19 [History] Polyethylene Glycol 3350 [Miralax] 17 gm PO HS@209910/27/19 [History] predniSONE 5 mg PO HS@209910/27/19 [History] traZODone HCL [Desyrel] 125 mg PO HS@209910/27/19 [History] Atorvastatin [Lipitor] 40 mg PO AC-SUPPER tab 10/30/19 [Rx] Heparin Sodium,Porcine [Heparin Sodium] 5,000 unit SQ Q12HR #30 vial 10/30/19 [Rx] Metoprolol Tartrate 12.5 mg PO BID 11/06/19 [History] ALPRAZolam [Xanax] 0.25 mg PO HS #3 tablet 11/10/19 [Rx] Famotidine [Pepcid] 20 mg PO BID #0 11/10/19 [Rx] HYDROcodone/APAP 5-325MG [[place] 5-325] 1 each PO Q6H PRN #12 tab 11/10/19 [Rx] Follow up Appointment(s)/Referral(s): Micha Salas DO [Primary Care Provider] - 1-2 days Activity/Diet/Wound Care/Special Instructions: Ibarra catheter discontinued 11/09 at 11:33. Please ensure that pt is voiding adequately, check bladder scan post void to ensure she is emptying her bladder. get ortho f/u orders
--- NOTE | 2019-11-14 11:45 | CDI ---
Documentation Clarification Form Date: 11/14/19 From: Tamiko Hernandez Phone: If you have a question about this query, please contact Patricia Thomas, [employer] at [phone] between 8am and 5pm. Admit Date: 11/05/19 Discharge Date: 11/10/19 Patient Name: GERA CORONADO Visit Number: [id number] ATTENTION: The Clinical Documentation Specialists (CDI) and [facility] Coding Staff appreciate your assistance in clarifying documentation. Please respond to the clarification below the line at the bottom and electronically sign. The CDI & [facility] Coding staff will review the response and follow-up if needed. Please note: Queries are made part of the Legal Health Record. If you have any questions, please contact the author of this message via ITS. Dear Dr. Jeyson Garrett, The diagnosis possible sepsis was documented in the ED note, consult, H&P and 11/06 PN , but is not noted in subsequent documentation. History/Risk Factors: CAD, COPD, GERD, HTN, RA, hyperlipidemia, anemia, s/p L- TKA Clinical Indicators: Lactic acid-1.1, WBC-16.3/19.2/20.5, Neutrophil- 13.9/17.0/17.9 Treatment: IV Rocephin, IV fluids Please clarify if the sepsis: Sepsis ruled out Present/active/treated this admission Other, please specify Clinically unable to determine Sepsis from UTI, POA MTDD
== END 2019-11-10 14:40 | DRG 872 ==
LOC: EC 20:01 → 4SSUR 23:08
PROVIDERS: ADMIT Hospitalist; ATTEND Hospitalist
PROC: 05HD33Z Insertion of Infusion Device into Right Cephalic Vein, Percutaneous Approach (ICD-10-PCS; principal; 2019-11-08 12:35)
DX: A41.9 Sepsis, unspecified organism (principal); N30.00 Acute cystitis without hematuria; N17.9 Acute kidney failure, unspecified; N13.30 Unspecified hydronephrosis; D62 Acute posthemorrhagic anemia; J98.11 Atelectasis; N18.3 Chronic kidney disease, stage 3 (moderate); J44.9 Chronic obstructive pulmonary disease, unspecified; M06.9 Rheumatoid arthritis, unspecified; E86.0 Dehydration; B96.5 Pseudomonas (aeruginosa) (mallei) (pseudomallei) as the cause of diseases classified elsewhere; E78.5 Hyperlipidemia, unspecified; I25.10 Atherosclerotic heart disease of native coronary artery without angina pectoris; K21.9 Gastro-esophageal reflux disease without esophagitis; I25.2 Old myocardial infarction; I12.9 Hypertensive chronic kidney disease with stage 1 through stage 4 chronic kidney disease, or unspecified chronic kidney disease; M25.552 Pain in left hip; K57.30 Diverticulosis of large intestine without perforation or abscess without bleeding; M19.90 Unspecified osteoarthritis, unspecified site; E66.9 Obesity, unspecified; Z68.28 Body mass index [BMI] 28.0-28.9, adult; Z79.82 Long term (current) use of aspirin; Z79.51 Long term (current) use of inhaled steroids; Z79.52 Long term (current) use of systemic steroids; Z79.899 Other long term (current) drug therapy; Z95.5 Presence of coronary angioplasty implant and graft; Z90.49 Acquired absence of other specified parts of digestive tract; Z96.642 Presence of left artificial hip joint; Z87.81 Personal history of (healed) traumatic fracture; Z86.59 Personal history of other mental and behavioral disorders; Z71.3 Dietary counseling and surveillance; Z88.5 Allergy status to narcotic agent; Z88.2 Allergy status to sulfonamides; Z88.8 Allergy status to other drugs, medicaments and biological substances; Z82.49 Family history of ischemic heart disease and other diseases of the circulatory system; Z82.0 Family history of epilepsy and other diseases of the nervous system
CPT/HCPCS: 36410; 36415; 71046; 73502; 76937; 80048; 80053; 81001; 83605; 85025; 85027; 85610; 85652; 85730; 87040; 87077; 87086; 87186; 87635; 93005; 96361; 96365; 96372; 96375; 96376; 99285

== ENCOUNTER → 2023-01-19 | Outpatient (CLI) | payer MEDICARE, OTHER ==
--- NOTE | 2023-01-19 13:43 | CT ---
EXAMINATION TYPE: CT brain w con DATE OF EXAM: 01/19/2023 COMPARISON: None HISTORY: R41.84 F06.7 Contrast-enhanced CT of the brain was performed. Automated exposure control for dose reduction was used. CONTRAST: CT scan of the head is performed with IV Contrast, patient injected with 50 mL of Isovue 300. FINDINGS: There is no abnormal enhancing mass or midline shift identified. The ventricles and sulci are within normal limits in size. The globes are intact and the visualized sinuses are clear. IMPRESSION: Negative contrast enhanced head CT exam.
== END | disposition home or self-care (01) ==
LOC: RADCTMAIN 12:16
PROVIDERS: ATTEND Family Medicine
DX: R41.840 Attention and concentration deficit (principal); F06.70 Mild neurocognitive disorder due to known physiological condition without behavioral disturbance
CPT/HCPCS: 70460; Q9967